=== PATIENT | male | born 1960 | race Caucasian/White ===

== ENCOUNTER → 2020-09-09 10:04 | Outpatient (BNVA) | payer BC, SELFPAY | PROVIDERS: Visit Provider Orthopaedic Surgery | DX: M75.41 Impingement syndrome of right shoulder (principal); M17.11 Unilateral primary osteoarthritis, right knee | CPT/HCPCS: 20610; J1040 ==

== ENCOUNTER 2022-08-24 08:02 | Outpatient (REF) | payer BC, SELFPAY ==
--- NOTE | ~2022-08-24 | CT_ITS ---
EXAMINATION: CT SINUS WITHOUT CONTRAST CLINICAL INFORMATION: Polyp of nasal cavity. COMPARISON: Remote CT scan of the head 07/24/2007. TECHNIQUE: Multidetector helical imaging was performed in the axial plane with generation of coronal and sagittal reformatted images. This CT examination was performed using dose optimization techniques as appropriate, variously including the following: *Automated exposure control *Adjustment of mA and/or kV according to patient size (this includes techniques or standardized protocols for targeted exams where dose is matched to indication/reason for exam; i.e. extremities or head) *Use of iterative reconstruction technique DLP: 166 mGy-cm. FINDINGS: FRONTAL SINUSES AND DRAINAGE PATHWAYS: The right frontal sinus is hypoplastic. There is a minimal amount of mucoperiosteal thickening in the left frontoethmoidal recess. MAXILLARY SINUSES AND DRAINAGE PATHWAYS: The maxillary sinuses are well-developed bilaterally. There is trace mucoperiosteal thickening in the inferior maxillary sinuses bilaterally. The ostiomeatal complexes are patent bilaterally. There are secondary ostia in the medial maxillary sinus bingham bilaterally. ETHMOID SINUSES: The ethmoid sinuses are well-developed and appear clear bilaterally. SPHENOID SINUSES AND DRAINAGE PATHWAYS: The sphenoid sinuses are well pneumatized. There is a minimal amount of mucoperiosteal thickening in the anterior right sphenoid sinus medially, but the sphenoethmoidal recess is patent. NASAL CAVITY AND NASAL SEPTUM: The nasal septum is deviated to the left and there is a prominent bony nasal septal spur extending between the left middle and inferior turbinate bones. There are small polyps off the posterior inferior turbinate bones bilaterally. ADDITIONAL RELEVANT FINDINGS: The lamina papyracea are intact. There is thin bone over the bilateral carotid canals. The ethmoid roofs are asymmetric, and the left olfactory fossa is deeper and narrower compared to the right. No periapical disease is seen. The TMJs and orbits are normal. There is moderate to severe opacification of the left mastoid air cells, which was demonstrated on remote prior imaging. There are no acute intracranial findings. CT/CT sinus wo IV con IMPRESSION: 1. There is mild paranasal sinus disease in multiple areas as described above. There is moderate to severe opacification of the left mastoid cells. 2. The ostiomeatal complexes are patent bilaterally. 3. The nasal septum is deviated to the left with a prominent left-sided bony spur.
== END 2022-08-24 08:03 | disposition home or self-care (01) ==
LOC: HO.CT 08:02
PROVIDERS: Visit Provider Otolaryngology
DX: J33.0 Polyp of nasal cavity (principal); J34.2 Deviated nasal septum
CPT/HCPCS: 70486

== ENCOUNTER 2022-11-10 05:58 | Outpatient (REF) | payer BC, SELFPAY ==
[2022-11-10 06:07] LABS: MANUAL DIFF FLAG NO
[2022-11-10 07:43] LABS: Basophils Absolute Auto 0.1 X10*3/uL (0.0-0.2); Eosinophils Absolute Auto 0.2 X10*3/uL (0.0-0.4); Eosinophils Percent Auto 3.5 % (0-4); Hematocrit 47.1 % (42.0-52.0); Hemoglobin 15.4 g/dl (14.0-18.0); Imm Gran Abs Auto 0.02 X10*3/uL (0.00-0.03); Imm Gran Pct Auto 0.4 % (0.0-0.4); Lymphocytes Absolute Auto 1.8 X10*3/uL (1.2-4.9); Lymphocytes Percent Auto 36.8 % (20-40); Mean Corpuscular HGB Conc 32.7 g/dl (31.0-36.0); Mean Corpuscular Hemoglobin 29.2 pg (27.0-33.0); Mean Corpuscular Volume 89.2 fL (80.0-98.0); Mean Platelet Volume 12.1 fL (9.4-12.4); Monocytes Absolute Auto 0.6 X10*3/uL (0.1-1.2); Monocytes Percent Auto 11.6 % (2-11); Neutrophils Absolute Auto 2.2 x10*3/uL (2.0-8.3); Neutrophils Percent Auto 46.7 % (45-73); Platelet Count 140 X10*3/uL (160-400); Red Blood Count 5.28 X10*6/uL (4.60-5.80); White Blood Count 4.8 X10*3/uL (4.8-10.8)
[2022-11-10 08:22] LABS: Erythrocyte Sedimentation Rate 5 MM/HR (0-15)
[2022-11-10 08:24] LABS: Alanine Aminotransferase 28 U/L (0-40); Albumin Level 4.3 g/dL (3.5-5.0); Alkaline Phosphatase 57 U/L (39-117); Anion Gap 15 (12-20); Aspartate Amino Transferase 21 U/L (5-37); Bilirubin Total 0.9 mg/dL (0.0-1.0); Blood Urea Nitrogen 23 mg/dL (9-16); C Reactive Protein < 0.10 mg/dL (< or = 0.50); Calcium 9.2 mg/dL (8.4-10.2); Carbon Dioxide 25 mmol/L (22-29); Chloride 108 mmol/L (96-108); Cholesterol 185 mg/dL; Estimated Glomerular Filt Rate 56; Glucose Fasting 90 mg/dL (60-99); HDL Cholesterol 64 mg/dL; LDL Cholesterol Calculated 107 mg/dl; Potassium 4.3 mmol/L (3.3-5.1); Sodium 144 mmol/L (135-145); Total Protein 6.9 g/dL (6.5-8.0); Triglycerides 74 mg/dL
[2022-11-10 08:45] LABS: Prostate Specific Antigen 1.78 ng/mL (<0.05-4.0)
[2022-11-12 05:09] LABS: Lyme Abs Screen <0.90 index
== END 2022-11-10 05:59 | disposition home or self-care (01) ==
LOC: HO.LAB 05:58
PROVIDERS: PCP Internal Medicine; Visit Provider Internal Medicine
DX: Z00.00 Encounter for general adult medical examination without abnormal findings (principal); Z12.5 Encounter for screening for malignant neoplasm of prostate; R51.9 Headache, unspecified
CPT/HCPCS: 36415; 80053; 80061; 84153; 85025; 85652; 86140; 86617; 86618

== ENCOUNTER 2022-12-03 08:23 | Outpatient (REF) | payer BC, SELFPAY ==
--- NOTE | ~2022-12-03 | MR_ITS ---
EXAMINATION: MR ANGIOGRAPHY BRAIN WITHOUT CONTRAST CLINICAL INFORMATION: Headache, rule out aneurysm COMPARISON: None TECHNIQUE: Noncontrast [id number] MRA of the brain was performed FINDINGS: Normal flow-related signal within the anterior circulation without evidence of focal stenosis or occlusion of the intradural internal carotid, middle cerebral, or anterior cerebral arteries. Normal flow-related signal within the posterior circulation without evidence of focal stenosis or occlusion of the intradural vertebral, basilar, superior cerebellar, or posterior cerebral arteries. configuration of the right posterior cerebral artery complex. No demonstrated intradural aneurysms. Left mastoid effusion. MR/MR angio head wo con IMPRESSION: No intracranial aneurysm
== END 2022-12-03 08:24 | disposition home or self-care (01) ==
LOC: HO.MRI 08:23
PROVIDERS: Visit Provider Internal Medicine
DX: R51.9 Headache, unspecified (principal); R05.1 Acute cough
CPT/HCPCS: 70544

== ENCOUNTER 2022-12-10 09:03 | Outpatient (REF) | payer BC, SELFPAY ==
--- NOTE | ~2022-12-10 | US_ITS ---
EXAMINATION: US RETROPERITONEAL LIMITED (RENAL ONLY) CLINICAL INFORMATION: Chronic kidney disease stage IIIa. Rule out obstruction. COMPARISON: Ultrasound abdomen complete 12/01/2016 and 11/22/2014. TECHNIQUE: Real-time imaging of the kidneys. FINDINGS: RIGHT KIDNEY: 11.5 x 5.7 x 5.2 cm (SAG x AP x TRV). The kidney is normal in size, contour, and echogenicity. Renal cortical thickness is normal. No calculi or focal parenchymal lesions. No hydronephrosis. LEFT KIDNEY: 12.2 x 6.1 x 5.5 cm (SAG x AP x TRV). The kidney is normal in size, contour, and echogenicity. Renal cortical thickness is normal. No calculi or focal parenchymal lesions. No hydronephrosis. US/US renal BI IMPRESSION: Normal-appearing kidneys with no evidence of obstruction.
== END 2022-12-10 09:04 | disposition home or self-care (01) ==
LOC: HO.US 09:03
PROVIDERS: PCP Internal Medicine; Visit Provider Internal Medicine
DX: N18.31 Chronic kidney disease, stage 3a (principal)
CPT/HCPCS: 76775

== ENCOUNTER 2023-08-11 08:21 | Outpatient (REF) | payer BC, SELFPAY ==
--- NOTE | ~2023-08-11 | XR_ITS ---
EXAMINATION: XR KNEE STANDING, BILATERAL XR KNEE, RIGHT CLINICAL INFORMATION: Pain. COMPARISON: 08/14/2019 TECHNIQUE: AP standing view of bilateral knees. Lateral and sunrise views of the right knee. FINDINGS: AP STANDING VIEW BILATERAL KNEES/RIGHT KNEE: Mild joint space narrowing with tiny medial marginal osteophytes left knee. Redemonstration of tricompartmental degenerative changes with joint space loss and marginal osteophytes in the right knee. Redemonstration of evidence of previous ACL repair. Moderate right joint effusion present. XR/XR knee standing BI IMPRESSION: 1. Status post ACL repair right knee. Moderate tricompartmental degenerative changes right knee. 2. Mild degenerative changes left knee. Mild joint space narrowing with tiny medial marginal osteophytes left knee.
--- NOTE | ~2023-08-11 | XR_ITS ---
EXAMINATION: XR KNEE STANDING, BILATERAL XR KNEE, RIGHT CLINICAL INFORMATION: Pain. COMPARISON: 08/14/2019 TECHNIQUE: AP standing view of bilateral knees. Lateral and sunrise views of the right knee. FINDINGS: AP STANDING VIEW BILATERAL KNEES/RIGHT KNEE: Mild joint space narrowing with tiny medial marginal osteophytes left knee. Redemonstration of tricompartmental degenerative changes with joint space loss and marginal osteophytes in the right knee. Redemonstration of evidence of previous ACL repair. Moderate right joint effusion present. XR/XR knee RT 2V IMPRESSION: 1. Status post ACL repair right knee. Moderate tricompartmental degenerative changes right knee. 2. Mild degenerative changes left knee. Mild joint space narrowing with tiny medial marginal osteophytes left knee.
== END 2023-08-11 08:22 | disposition home or self-care (01) ==
LOC: HO.HOSX 08:21
PROVIDERS: Visit Provider Orthopaedic Surgery
DX: M17.11 Unilateral primary osteoarthritis, right knee (principal); M25.562 Pain in left knee
CPT/HCPCS: 20610; 73560; 73565; J1100

== ENCOUNTER 2023-08-11 10:11 | Outpatient (AMB) | payer BC, SELFPAY ==
--- NOTE | 2023-08-11 10:17 | A.OFFVIS_ITS ---
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 He was last seen 09/08/[address] Jones who injected the knee. He reports that this injection was helpful for him for a few weeks to a month. He is having bilateral knee pain, right worse than left, the pain is felt all the time increased with most activity. Hx of a ACL repair of the right knee followed by an arthroscopy in 2013. 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 He works in [employer] and is doing loss of squatting and bending and climbing. He has pain all the time in his knees, R>L, which is worse with daily activity He was last seen by Dr. Jones on 09/08/20, and received a steroid injection, which he found helpful for ~1 month. He has a hx of right knee . 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 Review of Systems Const All systems reviewed & are unremarkable except as noted in HPI and below Physical Exam Const General: no acute distress, alert and awake Orientation/consciousness: patient oriented x3 HEENT Head: Yes normocephalic and Yes atraumatic Eyes EOM: EOMs intact bilaterally Resp Effort & Inspection: normal respiratory effort and able to speak in complete sentences Cardio Jugular venous distension: no JVD Skin General skin exam: turgor normal Rashes: no rashes Neuro General: patient oriented x3 Extrem Other: medial jlt ttp no effusion right 5-125 left 0-130 Psych Appearance: grossly normal Affect: normal affect Attitude: cooperative Office Procedures Joint Injection/Drain Joint Injection/Drain Details: Injected 1 mL of Decadron and 3 mL 1% lidocaine and 3 mL of 0.25% Marcaine. Site was prepped using aseptic technique. Patient tolerated the procedure well. Primary Site: right knee Secondary Site: left knee Approach Used: anterolateral Coding 51099 - Large joint 78241 - Glenohumeral/Tronchanteric Bursa/Intraarticular Procedure code (CPT) selection complete Results Reviewed Results Reviewed: 08/11/23 10:49 BUPivacaine MPF 0.25 % [Sensorcaine-MPF 0.25% 10 ML] 10 ml .ROUTE .STK-MED ONE Lidocaine HCl 1 % [Xylocaine 1 %] 2 ml .ROUTE .STK-MED ONE Lidocaine HCl 2 % MPF [Xylocaine 2 % MPF] 5 ml .ROUTE .STK-MED ONE dexAMETHasone sod phosphate [Decadron] 4 mg .ROUTE .STK-MED ONE I personally reviewed relevant radiographs. Moderate right knee OA Mild left knee OA Assessment & Plan Assessment & Plan (1) Primary osteoarthritis of right knee: Code(s): M17.11 - Unilateral primary osteoarthritis, right knee Plan: This is a 63-year-old gentleman with bilateral knee pain and moderate right knee osteoarthritis and mild on the left. I had a long discussion with him regarding his x-rays and his treatment options. At this point I recommend injections. I injected both knees today which she tolerated well. Orders: Orders XR knee standing BI 08/11/23 M25.569 - Pain in unspecified knee XR knee RT 2V 08/11/23 M25.569 - Pain in unspecified knee Coding Level of Care Code New Pt Level 3 (16584) Diagnoses Primary osteoarthritis of right knee M17.11 CPT Codes Coding - 85495 Large joint: 95962 - Large joint ([id number]) Coding - Joint 7: 58557 - Glenohumeral/Tronchanteric Bursa/Intraarticular ([id number])
== END 2023-08-11 11:28 | disposition home or self-care (01) ==
PROVIDERS: PCP Internal Medicine; Visit Provider Orthopaedic Surgery
DX: M17.0 Bilateral primary osteoarthritis of knee (principal)
CPT/HCPCS: 20610; 99214

== ENCOUNTER 2024-01-05 09:51 | Outpatient (REF) | payer BC, SELFPAY ==
--- NOTE | ~2024-01-05 | XR_ITS ---
EXAMINATION: XR KNEE, LEFT CLINICAL INFORMATION: Pain in unspecified knee. COMPARISON: 08/15/2023. TECHNIQUE: AP standing view of bilateral knees. Lateral and sunrise views of the left knee. FINDINGS: AP STANDING VIEW RIGHT KNEE: Moderate narrowing of the medial compartment with prominent medial and lateral marginal osteophytes redemonstrated. Redemonstration of evidence of previous ACL repair as noted on 08/14/2019. LEFT KNEE: Mild narrowing of the medial compartment. Small suprapatellar effusion. Tiny tricompartmental osteophytes. XR/XR knee LT 3V IMPRESSION: 1. Moderate degenerative changes right knee. 2. Mild degenerative changes left knee.
== END 2024-01-05 09:52 | disposition home or self-care (01) ==
LOC: HO.HOSX 09:51
PROVIDERS: PCP Internal Medicine; Visit Provider Orthopaedic Surgery
DX: M17.11 Unilateral primary osteoarthritis, right knee (principal); M25.462 Effusion, left knee
CPT/HCPCS: 20610; 73562; J0665; J1100

== ENCOUNTER 2024-01-05 09:51 | Outpatient (AMB) | payer BC, SELFPAY ==
--- NOTE | 2024-01-05 10:01 | A.OFFVIS_ITS ---
Intake Intake Visit Reasons: OV - B/L knee OA Intake Note: Wei is a 63 year old male who presents today as a new patient for a follow up of his right knee OA. He works in [employer] and is doing loss of squatting and bending and climbing. He has pain all the time in his knees, L>R, which is worse with daily activity. At his last visit on 08/11/23 bilateral knees were injected. The injections were helpful but only for a short period of time. Originally the right knee was more painful but recently the left knee has increased in pain which is limiting his work. Allergies No Known Allergies Allergy (Verified 01/05/24 10:03) HPI OV - B/L knee OA HPI Details Wei returns with left knee pain. He has pain with all daily activities and it is worse after walking and stairs. He had bilateral knee injection 6 months ago with some relief. He has a hx of right ACL reconstruction. 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 Stable ligamentous exam ? + medial Steinmen's Psych Appearance: grossly normal Affect: normal affect Attitude: cooperative Office Procedures Joint Injection/Drain Joint Injection/Drain Details: Injected 1 mL of Decadron and 3 mL 1% lidocaine and 3 mL of 0.25% Marcaine. Site was prepped using aseptic technique. Patient tolerated the procedure well. Primary Site: right knee Secondary Site: left knee Approach Used: anterolateral Coding - Large joint - Glenohumeral/Tronchanteric Bursa/Intraarticular Procedure code (CPT) selection complete Results Reviewed Results Reviewed: I personally reviewed relevant radiographs. Peaking of intercondylar emminces, otherwise mild OA at worst. Assessment & Plan Assessment & Plan (1) Primary osteoarthritis of right knee: Code(s): M17.11 - Unilateral primary osteoarthritis, right knee Plan: I Injected bilateral knees today (2) Effusion, left knee: Code(s): M25.462 - Effusion, left knee Plan: His primary complaint is left knee pain and recurrent swelling. His radiographs show mild OA only. I recommend MRI of the left knee. Orders: Orders XR knee standing BI Today M25.569 - Pain in unspecified knee MR knee LT wo con Today M25.462 - Effusion, left knee Coding Level of Care Code Est Pt Level 4 (49403) Diagnoses Primary osteoarthritis of right knee M17.11 Effusion, left knee M25.462 CPT Codes Coding - Large joint: 61111 - Large joint ([id number]) Coding - Joint 7: 09117 - Glenohumeral/Tronchanteric Bursa/Intraarticular ([id number])
== END 2024-01-05 11:24 | disposition home or self-care (01) ==
PROVIDERS: PCP Internal Medicine; Visit Provider Orthopaedic Surgery
DX: M17.11 Unilateral primary osteoarthritis, right knee (principal); M25.462 Effusion, left knee
CPT/HCPCS: 20610; 99214

== ENCOUNTER 2024-02-02 07:17 | Outpatient (REF) | payer BC, SELFPAY ==
--- NOTE | ~2024-02-02 | MR_ITS ---
EXAMINATION: MR KNEE WITHOUT CONTRAST, LEFT CLINICAL INFORMATION: Left knee pain. Effusion. COMPARISON: 01/05/2024 TECHNIQUE: MRI of the knee without contrast was performed using routine sequences on a high-field scanner. FINDINGS: MENISCI: Medial Meniscus: There is mildly increased intrasubstance signal within the posterior horn and body, suggesting intrameniscal degenerative signal. No tears. Lateral Meniscus: A complex tear is suspected at the anterior horn with horizontal or vertical components contacting the superior meniscal articular surface as well as markedly abnormal increased intrasubstance signal throughout the anterior horn, sparing the tibial-sided fibers. There is surrounding parameniscal edema as well as an anterior subacromial parameniscal cyst. Meniscal body and posterior horn are unremarkable. LIGAMENTS: Cruciate: Intact Collateral: Intact EXTENSOR MECHANISM: Intact ARTICULAR CARTILAGE/BONE: Patellofemoral Compartment: Minimal chondral thinning and fissuring at the lateral patellar facet. Tiny marginal osteophytes. Trochlear cartilage appears well-preserved. TT TG distance measures 1.5. Lateral trochlear inclination angle measures 11 degrees, within normal limits. Sulcus angle measures 140 degrees, normal. Medial Compartment: At the medial femoral condyle weightbearing surface, there is a partial-thickness chondral fissure measuring 1.5 cm AP with a small associated 3 x 5 mm partial-thickness delaminated chondral flap. Minimal underlying subchondral edema. Lateral Compartment: Minimal chondral surface irregularity at the medial aspect of the lateral femoral condyle weightbearing surface. JOINT FLUID AND BURSAE: Trace joint effusion and Fontana's cyst. No loose bodies. MR/MR knee LT wo con IMPRESSION: 1. Complex tear of the anterior horn of the lateral meniscus with an associated parameniscal cyst. 2. Minimal tricompartmental osteoarthritis. 3. Trace joint effusion and Fontana's cyst.
== END 2024-02-02 07:18 | disposition home or self-care (01) ==
LOC: HO.MRI 07:17
PROVIDERS: PCP Internal Medicine; Visit Provider Orthopaedic Surgery
DX: M25.462 Effusion, left knee (principal)
CPT/HCPCS: 73721

== ENCOUNTER 2024-02-24 11:04 | Outpatient (AMB) | payer BC, SELFPAY ==
--- NOTE | 2024-02-24 11:14 | A.OFFVIS_ITS ---
Vital Signs 02/24/24 11:17 Height 6 ft 2 in Weight 195 lb BMI 25.0 Intake Visit Reasons: OV-MRI Knee LT-review Intake Note: Wei is a 64 year old male who presents today for an MRI review of his left knee. bilateral knees injected 08/11/23. Patient reports that he has had no changes in his symptoms, continues to have pain. Allergies No Known Allergies Allergy (Verified 01/05/24 10:03) HPI HPI OV-MRI Knee LT-review: Details: Wei is a 64 year old male who presents today for an MRI review of his left knee. bilateral knees injected 08/11/23. Patient reports that he has had no changes in his symptoms, continues to have pain. Marked describes pain with twisting activities. He feels like he has difficulty getting through his day without pain. Injections been minimally helpful. 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 Stable ligamentous exam Positive lateral Victor Hugo's Psych Appearance: grossly normal Affect: normal affect Attitude: cooperative Results Reviewed Results Reviewed: I personally reviewed the MR images. MR/MR knee LT wo con IMPRESSION: 1. Complex tear of the anterior horn of the lateral meniscus with an associated parameniscal cyst. 2. Minimal tricompartmental osteoarthritis. 3. Trace joint effusion and Fontana's cyst. Assessment & Plan Assessment & Plan (1) Lateral meniscus tear: Code(s): S83.289A - Other tear of lateral meniscus, current injury, unspecified knee, initial encounter Category: Medical Plan: This is a active 64-year-old gentleman with a painful anterolateral meniscus tear. We have treated this conservatively for over 6 months without benefit. He continues to have sharp anterolateral pain with twisting. I recommend knee arthroscopy. I reviewed his MRI with him and discussed the risks, benefits and alternatives of surgery. I discussed the risks benefits and alternatives including but not limited to the risk of pain, infection, stiffness, need for further surgery as well as potential medical complications such as blood clots, pulmonary embolism and cardiac complications. He expressed understanding and we will proceed forward accordingly. Coding Level of Care Code Est Pt Level 4 (28688) Diagnoses Lateral meniscus tear S83.289A
[2024-02-24 11:17] VITALS: BMI 25.0
== END 2024-02-24 11:46 | disposition home or self-care (01) ==
PROVIDERS: PCP Internal Medicine; Visit Provider Orthopaedic Surgery
DX: S83.282A Other tear of lateral meniscus, current injury, left knee, initial encounter (principal)
CPT/HCPCS: 99214

== ENCOUNTER → 2024-02-24 11:04 | Outpatient (BNVA) | payer BC, SELFPAY | PROVIDERS: PCP Internal Medicine; Visit Provider Orthopaedic Surgery ==

== ENCOUNTER 2024-03-22 11:16 | Outpatient (AMB) | payer BC, SELFPAY ==
--- NOTE | 2024-03-22 11:19 | A.OFFVIS_ITS ---
Vital Signs 03/22/24 11:25 Height 6 ft 2 in Weight 195 lb BMI 25.0 Intake Visit Reasons: Preop LT knee 03/28/24 NE Intake Note: Wei is a 64 year old male who presents today for a pre op appointment for his LT knee 03/28/24 NE. Allergies No Known Allergies Allergy (Verified 03/22/24 11:23) HPI HPI Preop LT knee 03/28/24 NE: Details: 64-year-old right hand dominant male who presents in the office today for his preoperative history and physical exam prior to a left knee arthroscopy to be performed on 03/28/[address] Priyank Velasquez. Patient has no known allergy history. Patient is not currently taking any medication. 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 Review of Systems Const All systems reviewed & are unremarkable except as noted in HPI and below Physical Exam Vital Signs: BMI result Body Mass Index 25.0 Const General: no acute distress, alert and awake Orientation/consciousness: patient oriented x3 HEENT Head: Yes normocephalic and Yes atraumatic Eyes General: appearance normal, both eyes and all related structures EOM: EOMs intact bilaterally Neck Neck: Yes normal visual inspection and Yes no lymphadenopathy Resp Effort & Inspection: normal respiratory effort and able to speak in complete sentences Cardio Jugular venous distension: no JVD Rate: regular rate Peripheral pulses: Peripheral pulses 2+ throughout GI Inspection: Yes normal to inspection Palpation (GI): Soft to palpation Skin General skin exam: turgor normal Rashes: no rashes Neuro General: patient oriented x3 Extrem Other: Left knee: Skin is clean, dry, and intact. Mild effusion, none on the right There is a small Fontana's cyst. Stable ligamentous exam Positive lateral Victor Hugo's Psych Appearance: grossly normal Mental Status: mental status grossly normal Affect: normal affect Attitude: cooperative Assessment & Plan Assessment & Plan (1) Lateral meniscus tear: Comment: Left knee Code(s): S83.289A - Other tear of lateral meniscus, current injury, unspecified knee, initial encounter Category: Medical Plan Mr. Lyn is a 64-year-old right hand dominant male who presents in the office today for his preoperative history and physical exam prior to a left knee arthroscopy to be performed on 03/28/[address] Priyank Velasquez. Patient has no known allergy history. Patient is not currently taking any medication. 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 We discussed the risks, benefits and alternatives to the surgery and the rehabilitation course. The risks include infection, bleeding, nerve injury, ongoing pain, swelling, and stiffness, perioperative risk of injury to bones and soft tissues, and blood clots. I have answered all questions and with their understanding they have consented to move forward with a left knee arthroscopy to be performed on 03/28/[address] Priyank Velasquez. Post operative medications were sent to the pharmacy, hydrocodone-acetaminophen 5-325 mg (Vicodin) PO Q8H PRN, quantity 21 tabs for 7 days , while in the office today. The patient was instructed that he should obtain the prescription prior to surgery but should not consume until after the procedure; as these should only be taken for post operative pain management. Should the patient take these medications before surgery, a refill will not be sent to the pharmacy until their scheduled refill date. Follow-up will be at the post operative appointment on 04/12/2024 at 12:30 pm, or sooner if needed. PT order was created in the office today for after post-op. Orders: Orders PT Evaluation and Treatment Today S83.289A - Other tear of lateral meniscus, current injury, unspecified knee, initial encounter Medications: New hydrocodone-acetaminophen 5-325 mg Partial Fill upon patient request. 1 tab PO Q8H PRN 21 tabs 0RF pain 7 days Patient Instructions: Scribed by Deanna Marie certified medical assistant, for Lindsey Shen PA-C on 03/22/2024 at 11:20 am, EST. Coding Level of Care Code Global (12992) Diagnoses Lateral meniscus tear S83.289A
[2024-03-22 11:25] VITALS: BMI 25.0
== END 2024-03-22 11:35 | disposition home or self-care (01) ==
PROVIDERS: PCP Internal Medicine; Visit Provider Physician Assistant
DX: S83.289A Other tear of lateral meniscus, current injury, unspecified knee, initial encounter (principal)
CPT/HCPCS: 99024

== ENCOUNTER → 2024-03-22 11:16 | Outpatient (BNVA) | payer BC, SELFPAY | PROVIDERS: PCP Internal Medicine; Visit Provider Physician Assistant ==

== ENCOUNTER 2024-03-27 06:00 | Outpatient (REF) | payer BC, SELFPAY ==
[2024-03-27 06:19] LABS: MANUAL DIFF FLAG NO
[2024-03-27 07:36] LABS: Basophils Absolute Auto 0.1 X10*3/uL (0.0-0.2); Eosinophils Absolute Auto 0.2 X10*3/uL (0.0-0.4); Eosinophils Percent Auto 4.2 % (0-4); Hematocrit 45.2 % (42.0-52.0); Hemoglobin 14.9 g/dl (14.0-18.0); Imm Gran Abs Auto 0.02 X10*3/uL (0.00-0.03); Imm Gran Pct Auto 0.4 % (0.0-0.4); Lymphocytes Absolute Auto 1.6 X10*3/uL (1.2-4.9); Lymphocytes Percent Auto 31.9 % (20-40); Mean Corpuscular Hemoglobin 29.5 pg (27.0-33.0); Mean Corpuscular Volume 89.5 fL (80.0-98.0); Mean Platelet Volume 12.1 fL (9.4-12.4); Monocytes Absolute Auto 0.6 X10*3/uL (0.1-1.2); Monocytes Percent Auto 11.1 % (2-11); Neutrophils Absolute Auto 2.6 x10*3/uL (2.0-8.3); Neutrophils Percent Auto 51.4 % (45-73); Platelet Count 142 X10*3/uL (160-400); Red Blood Count 5.05 X10*6/uL (4.60-5.80); Red Cell Distribution Width 13.3 % (11.0-16.0)
[2024-03-27 07:46] LABS: Alanine Aminotransferase 17 U/L (0-40); Albumin Level 4.3 g/dL (3.5-5.0); Alkaline Phosphatase 50 U/L (39-117); Anion Gap 12 (12-20); Aspartate Amino Transferase 14 U/L (5-37); Bilirubin Total 0.6 mg/dL (0.0-1.0); Blood Urea Nitrogen 25 mg/dL (9-16); Calcium 9.1 mg/dL (8.4-10.2); Carbon Dioxide 24 mmol/L (22-29); Chloride 110 mmol/L (96-108); Cholesterol 193 mg/dL (<200); Estimated Glomerular Filt Rate > 60; Glucose Fasting 95 mg/dL (60-99); HDL Cholesterol 75 mg/dL (>40); LDL Cholesterol Calculated 104 mg/dL (<100); Sodium 142 mmol/L (135-145); Total Protein 6.9 g/dL (6.5-8.0); Triglycerides 70 mg/dL (<150)
[2024-03-27 08:07] LABS: Prostate Specific Antigen 0.83 ng/mL (<0.05-4.0)
[2024-03-27 10:38] LABS: Appearance Urine Clear; Color Urine Yellow; Glucose Urine UA Negative (Negative); Leukocyte Esterase Urine Negative (Negative); Nitrite Urine Negative (Negative); PH 5.5 (5.0-9.0); Specific Gravity - Urine >= 1.030 (1.005-1.025); Urine Blood Negative (Negative); Urine Ketones Negative (Negative); Urine Protein Negative (Neg-Trace)
== END 2024-03-27 06:01 | disposition home or self-care (01) ==
LOC: HO.LAB 06:00
PROVIDERS: PCP Internal Medicine; Visit Provider Internal Medicine
DX: I10 Essential (primary) hypertension (principal); Z12.5 Encounter for screening for malignant neoplasm of prostate
CPT/HCPCS: 36415; 80053; 80061; 81003; 84153; 85025

== ENCOUNTER 2024-03-28 05:47 | Day surgery (SDC) | payer BC, SELFPAY ==
[2024-03-26 07:43] VITALS: BMI 25.0
--- NOTE | 2024-03-26 13:41 | P.CONAN_ITS ---
Documented by User: Elizabeth Puga NP 03/26/24 13:41 HPI - Anesthesia Eval Consult details Narrative: 64yo M for Left Knee Arthroscopy PMFSH Active Problems Active Problems: All Active Problems Lateral meniscus tear (Acute) Effusion, left knee (Acute) Primary osteoarthritis of right knee (Acute) Rotator cuff impingement syndrome of right shoulder (Acute) Past Medical History Medical History Rotator cuff impingement syndrome of right shoulder Primary osteoarthritis of right knee GERD (gastroesophageal reflux disease) Medial meniscus tear Surgical History Surgical History History of repair of ACL History of arthroscopy of right knee Social History Social History Alcohol intake: current Alcohol intake frequency: holidays/special occasions only Patient Tobacco Use Status: Never used Tobacco Use of substances other than those prescribed or required for medical reasons: Yes Substance Use Type Other:: occas danielle Are you DNR?: No Advance Directives: No Advance Directives Information Provided: Yes Current occupational status: employed 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 Meds Allergies Allergy/AdvReac Type Severity Reaction Status Date / Time No Known Allergies Allergy Verified 03/28/24 06:06 Exam Height,Weight and Vital Signs: Height 6 ft 2 in Weight 88.451 kg Assessment and Plan Assessment Anesthesia Assessment: Chart Reviewed Documented by User: Luz Keen MD 03/28/24 07:25 PMFSH Past Medical History Medical History Rotator cuff impingement syndrome of right shoulder Primary osteoarthritis of right knee GERD (gastroesophageal reflux disease) Medial meniscus tear Family History Family history of problems with anesthesia: No Surgical History Surgical History History of repair of ACL History of arthroscopy of right knee History of Problems with Anesthesia: No Social History Social History Alcohol intake: current Alcohol intake frequency: holidays/special occasions only Patient Tobacco Use Status: Never used Tobacco Use of substances other than those prescribed or required for medical reasons: Yes Substance Use Type Other:: micheal santos Are you DNR?: No Advance Directives: No Advance Directives Information Provided: Yes Current occupational status: employed 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 Allergies Allergy/AdvReac Type Severity Reaction Status Date / Time No Known Allergies Allergy Verified 03/28/24 06:06 Exam Airway Mallampati Class: II TM Dist: >3cm Neck ROM: Full Heart: rrr Lungs: cta Assessment and Plan Assessment Anesthesia Assessment: Anesthesia Plan Discussed Final Anesthetic Review Family History of Problems with Anesthesia: No History of Problems with Anesthesia: No NPO: Yes ASA Class: II Final Preanesthetic Review: No Changes in Pt Med Stat, Meds/Allgs Chart Reviewed, Consent Obtained/Reviewed and Anes Risks/Benef Reviewed Patient Risk: Low Procedure Risk: Low Anesthetic Plan Anesthetic Plan: GA Disposition: Standard PACU
[2024-03-28 06:07] VITALS: BMI 25.3
[2024-03-28 06:10] VITALS: BMI 25.3
[2024-03-28 06:15] VITALS: BP 118/66; PULSE 65; RESP 18; TEMP 36.2; O2SAT 98
[2024-03-28] MEDS: Lactated Ringers 1,000 ML 100 ML IVCONT (06:31)
--- NOTE | 2024-03-28 07:26 | MHC.SHP ---
Pre-Procedural Eval Section A - 24 Hr Update-Section A only Date of Service: 03/28/24 The patient is an INPATIENT: No Changes since office visit: No Cold of Flu in the past 2 weeks, No New Medical Problems, No Changes in Medication and No Patient answered all questions The patient has been examined within 24 hours of the surgical procedure. The History & Physical has been completed within 30 days and I have reviewed it.: Yes Section B - Complete if H&P > 30 days Chief Complaint: Other tear of medial meniscus, current injury, Allergies: Allergies Allergy/AdvReac Type Severity Reaction Status Date / Time No Known Allergies Allergy Verified 03/28/24 06:06 Plan I have reviewed the history and physical and performed a pertinent physical examination on my patient. No changes have occurred unless specified. Time Spent With Patient Time: Total time managing care of this patient today ____ minutes.
--- NOTE | 2024-03-28 08:11 | P.BOP_ITS ---
Brief Operative Note Date of Service: 03/28/24 Pre-op diagnosis: left knee lateral meniscus tear Post-op diagnosis: other (1) Lateral meniscus tear 2) Chondromalacia medial femoral condyle (Grade2)) Procedure: Partial lateral meniscectomy and chondroplasty Implants: none Surgeon: Priyank Velasquez MD Anesthesia: GETA Was an Maintenance Supervisor Mechanical used for this Procedure?: No Estimated blood loss (mL): 20 Tourniquet time (min): 17 IV fluids (mL): 500 Pathology: none sent Condition: stable Disposition: PACU
--- NOTE | 2024-03-28 08:13 | W.PM.OPN ---
Operative Note Operative Note Date of Service: 03/28/24 Narrative: Date of Service: 03/28/24 Pre-op diagnosis: left knee lateral meniscus tear Post-op diagnosis: other (1) Lateral meniscus tear 2) Chondromalacia medial femoral condyle (Grade2)) Procedure: Partial lateral meniscectomy and chondroplasty Implants: none Surgeon: Priyank Velasquez MD Anesthesia: GETA Was an Lift Mechanic used for this Procedure?: No Estimated blood loss (mL): 20 Tourniquet time (min): 17 IV fluids (mL): 500 Pathology: none sent Condition: stable Disposition: PACU Procedure in detail: Patient was brought to the operating room placed supine on the arthroscopic table and prepped and draped in standard sterile fashion. A time-out was called to identify proper site proper procedure proper surgeon and IV antibiotics per weight were administered. I began by exsanguinating the limb and insufflating tourniquet to 300 mm Hg. Then made a standard anterolateral stab incision. The knee was insufflated with water and 30 degree arthroscope was placed. There was grade 1 fibrillations of the patella but overall suprapatellar pouch and the gutters were clean. I descended into the medial compartment where I made my medial portal under direct visualization. There was an intact medial meniscus and G2 changes of the wb portion of the MFC. The ACL was intact. Laterally there was a far anterior tear of the lateral meniscus and there was scarring with the anterior interval fat and a loose meniscal fragment. I debrided this with a shaver and cautery. I then examined the lateral compartment. The cartilage surfaces were clean. The meniscal root and the body and posterior horn were intact. The anterior medial aspect of the lateral meniscus was degerated but stable to probing. I then debrided the MFC chondromalacia. Once I was satisfied with the debridement I took my final pictures. I then removed all instrumentation and closed the portals with skin glue. 25 mL of 2% Marcaine with epinephrine was injected into the joint and the surrounding soft tissues. Patient was then placed in sterile dressing extubated brought recovery room stable condition. There were no known complications.
[2024-03-28 08:15] VITALS: BP 114/64; PULSE 61; RESP 12; TEMP 36.6; O2SAT 99
[2024-03-28 08:20] VITALS: BP 115/68; PULSE 59; RESP 16; O2SAT 98
[2024-03-28 08:25] VITALS: BP 123/69; PULSE 60; RESP 16; O2SAT 95
[2024-03-28 08:30] VITALS: BP 119/68; PULSE 59; RESP 16; O2SAT 95
[2024-03-28 08:45] VITALS: BP 120/66; PULSE 55; RESP 18; TEMP 36.5; O2SAT 97
== END 2024-03-28 09:37 | disposition home or self-care (01) ==
LOC: HO.SSS 05:47
PROVIDERS: PCP Internal Medicine; Visit Provider Orthopaedic Surgery
PROC: (CPT 29870; principal; 2024-03-28 07:30)
DX: S83.282A Other tear of lateral meniscus, current injury, left knee, initial encounter (principal); M94.262 Chondromalacia, left knee; X58.XXXA Exposure to other specified factors, initial encounter; Y93.9 Activity, unspecified; Y92.9 Unspecified place or not applicable; Y99.9 Unspecified external cause status
CPT/HCPCS: 29881; J0131; J0171; J0690; J1100; J1885; J2250; J2405; J2704; J2795; J3010

== ENCOUNTER → 2024-03-28 05:47 | Outpatient (BNV) | payer BC, SELFPAY | PROVIDERS: PCP Internal Medicine; Visit Provider Orthopaedic Surgery | DX: S83.282A Other tear of lateral meniscus, current injury, left knee, initial encounter (principal) | CPT/HCPCS: 29881 ==

== ENCOUNTER 2024-04-12 12:10 | Outpatient (AMB) | payer BC, SELFPAY ==
--- NOTE | 2024-04-12 12:36 | MHC.OFFVIS ---
Intake Visit Reasons: PO LT knee 03/28/24 NE Intake Note: Wei is a 64 year old male who presents today for a post op appointment s/p LT knee 03/28/24 NE. Patient reports he is doing well, states feeling a tightness in the posterior aspect of knee. He continues to have swelling in his leg down to his foot. Allergies No Known Allergies Allergy (Verified 03/28/24 06:06) HPI HPI PO LT knee 03/28/24 NE: Details: 64-year-old right hand dominant male who presents in the office today 15 days status post left knee partial lateral meniscectomy and chondroplasty, which was performed on 03/28/[address] Velasquez.? ? While in the office today, the patient reports he is doing well. He claims to feel tightness along the posterior aspect of the left knee. He confirms continued edema in the left lower extremity extending to the left foot. ? 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 No surrounding erythema or drainage. No ecchymosis or joint effusion. Slight irritation at the medial incision site where the suture is located. No signs of infection, at this time. Calf is supple and non-tender.?Full ROM. Negative Barrera?s. NVI.? Assessment & Plan Assessment & Plan (1) S/P left knee arthroscopy: Onset Date: ~03/28/24 Comment: Left knee partial lateral meniscectomy and chondroplasty NE Code(s): Z98.890 - Other specified postprocedural states Category: Surgical Plan Mr. Lyn is a 64-year-old right hand dominant male who presents in the office today 15 days status post left knee partial lateral meniscectomy and chondroplasty, which was performed on 03/28/[address] Velasquez.? ? While in the office today, the patient reports he is doing well. He claims to feel tightness along the posterior aspect of the left knee. He confirms continued edema in the left lower extremity extending to the left foot.? ? The patient will attend physical therapy which begins on 04/24/2024 at 8:00 am. Follow-up will be PRN, or sooner if needed. ? Patient Instructions: Scribed by Deanna Marie medical office representative, for Lindsey Shen PA-C on 04/12/2024 at 12:14 pm, EST.? Coding Level of Care Code Global (13294) Diagnoses S/P left knee arthroscopy Z98.890
== END 2024-04-12 13:01 | disposition home or self-care (01) ==
PROVIDERS: PCP Internal Medicine; Visit Provider Physician Assistant
DX: Z98.890 Other specified postprocedural states (principal)
CPT/HCPCS: 99024

== ENCOUNTER → 2024-04-12 12:10 | Outpatient (BNVA) | payer BC, SELFPAY | PROVIDERS: PCP Internal Medicine; Visit Provider Physician Assistant ==

== ENCOUNTER 2024-04-27 16:04 | Outpatient (REF) | payer BC, SELFPAY ==
--- NOTE | ~2024-04-27 | US_ITS ---
EXAMINATION: US VENOUS ULTRASOUND WITH DOPPLER LOWER EXTREMITY, LEFT CLINICAL INFORMATION: Pain. COMPARISON: None available. TECHNIQUE: Ultrasound of the deep veins is performed from the hip to the calf with compression sonography and color and pulse Doppler assessment. Spectral analysis with color-flow imaging is performed. FINDINGS: There is normal venous compression and respiratory variation and augmented flow. The visualized common femoral vein, superficial femoral vein, profunda femoral vein, popliteal vein, and the trifurcation region shows no evidence of deep venous thrombosis. There is a 3.8 x 0.6 x 1.4 cm bilobed avascular collection in the left popliteal fossa with a single internal septation. Mildly enlarged left inguinal lymph nodes with nonaggressive morphology including preserved fatty hilum and normal cortex, most likely reactive. US/US venous duplex LE LT IMPRESSION: 1. No DVT demonstrated in the left lower extremity. 2. There is a 3.8 cm bilobed avascular collection in the left popliteal fossa, possibly a Fontana's cyst, superimposed infection/inflammation is not excluded. Recommend clinical correlation and attention on follow-up. 3. Mildly enlarged left inguinal lymph nodes, likely reactive. If the patient's symptoms persist, followup ultrasound in 5 days 7 days might be of value to exclude proximal propagation from a non-visualized calf vein.
== END 2024-04-27 16:05 | disposition home or self-care (01) ==
LOC: HO.US 16:04
PROVIDERS: PCP Internal Medicine; Visit Provider Internal Medicine
DX: M79.662 Pain in left lower leg (principal)
CPT/HCPCS: 93971

== ENCOUNTER 2024-05-24 07:00 | Outpatient (RCR) | payer BC, SELFPAY ==
--- NOTE | 2024-04-24 14:21 | MHC.PT.EP ---
[facility] [place] Office [place] Office [place] Office [address] Rocio Donahue [address] [phone] F: [phone] F: [phone] F: [phone] F: [phone] Physical Therapy Plan of Care Date of Evaluation: 04/24/24 Date of Surgery: 03/28/24 Diagnosis: TEAR LATERAL MENISCUS L Assessment: Pt IS 64 YO M REFERRED TO PT FROM [facility] ([facility]) S/P L KNEE (LAT MENISCECTOMY AND MED FEMORAL CHONDROPLASTY) ON 03/28/[address] VARMA. PRESENTS TO PT WITH GOOD KNEE ROM AND STRENGTH TESTING BUT REPORTS SOME CONTINUED SWELLING AND LIMITED ABILITY TO SQUAT. 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 Pt SHOULD BENEFIT FROM PT TO HELP IMPROVE STRENGTH AND PROPRIOCEPTION AND OVERALL FUNCTIONAL MOBILITY TO HELP DECREASE PAIN/SWELLING. OF NOTE, Pt HAD ACL RECONSTRUCTION ON R KNEE IN PAST AND CONTINUES WITH R KNEE SXS SO SHOULD BENEFIT FROM PERFORMING EXS/STRETCHES B Frequency and Duration: The patient will be seen 2X/WK X 6 WKS Short Term Goals: 1. INCREASED AWARENESS KNEE CARE 2. I HEP WITH DC EX PLAN Field Appraiser Goals: 1. DECREASED L KNEE PAIN AT LEAST 50% WITH ADLS 2. IMPROVED LEFI (41/80 SOC) Treatment Plan: Modalities to reduce pain, spasms and effusion. Manual therapy to restore motion and function. Therapeutic exercise to improve strength and flexibility. Neuromuscular re-education for posture and balance. Therapeutic activities to return to functional activities of daily living. Electronically signed by: JAYLENE GAO PT Please sign and return to therapist. Thank you for your referral.
--- NOTE | 2024-06-14 07:32 | MHC.PT.DC ---
[facility] [place] Office [place] Office [place] Office [address] Rocio Donahue [address] [phone] F: [phone] F: [phone] F: [phone] F: [phone] Physical Therapy Discharge Report Diagnosis: TEAR LATERAL MENISCUS L Date of Surgery: 03/28/24 Date of Evaluation: 04/24/24 Date of Discharge: 06/14/24 Treatments to Date: 8 Cancellations to Date: 0 No Shows to Date: 2 Discharge Status: Achieved Goals Improved Function Independent with HEP Discharge Summary: AT THE LAST ATTENDED PT APPT, RIGOBERTO WAS 8 WKS POST-OP ( OF 05/23/24). RIGOBERTO HAS RESIDUAL WEAKNESS IN Rt > Lt CALF/ GLUTE -> OF NOTE, HE HAS A H/O RIGHT ACL RECONSTRUCTION- HIS LEFT KNEE PAIN IS INTERMITTENT, WORSE LATER IN THE DAY, MORE LOCALIZED TO LATERAL ASPECT OF Lt KNEE; HE WAS CHALLENGED ECCENTRICALLY -> HIS PROGRESSIVE HEP ADDRESSES ECCENTRIC WORK. HE HAS RTW AND IS TOLERATING HIS JOB DEMANDS. THE Pt WAS ON VACATION AND THEN HE DID NOT ATTEND HIS LAST 2 APPTS. HE IS D/C'D THIS DATE, HAVING MET THE MAJORITY OF PT GOALS SET W Pt. Electronically signed by: MAHAD CH,PT Please sign and return to therapist. Thank you for your referral.
--- NOTE | 2024-06-14 07:37 | MHC.PT.DC ---
[facility] [place] Office [place] Office [place] Office [address] Rocio Donahue [address] [phone] F: [phone] F: [phone] F: [phone] F: [phone] Physical Therapy Discharge Report Diagnosis: TEAR LATERAL MENISCUS L Date of Surgery: 03/28/24 Date of Evaluation: 04/24/24 Date of Discharge: 06/14/24 Treatments to Date: 8 Cancellations to Date: 0 No Shows to Date: 2 Discharge Status: Achieved Goals Improved Function Independent with HEP Discharge Summary: AT THE LAST ATTENDED PT APPT, RIGOBERTO WAS 8 WKS POST-OP ( OF 05/23/24). RIGOBERTO HAS RESIDUAL WEAKNESS IN Rt > Lt CALF/ GLUTE -> OF NOTE, HE HAS A H/O RIGHT ACL RECONSTRUCTION- HIS LEFT KNEE PAIN IS INTERMITTENT, WORSE LATER IN THE DAY, MORE LOCALIZED TO LATERAL ASPECT OF Lt KNEE; HE WAS CHALLENGED ECCENTRICALLY -> HIS PROGRESSIVE HEP ADDRESSES ECCENTRIC WORK. HE HAS RTW AND IS TOLERATING HIS JOB DEMANDS. THE Pt WAS ON VACATION AND THEN HE DID NOT ATTEND HIS LAST 2 APPTS. HE IS D/C'D THIS DATE, HAVING MET THE MAJORITY OF PT GOALS SET W Pt. Electronically signed by: MAHAD CH,PT Please sign and return to therapist. Thank you for your referral.
== END 2024-06-14 07:37 | disposition home or self-care (01) ==
LOC: HO.PT 07:00
PROVIDERS: PCP Internal Medicine; Visit Provider Physician Assistant
DX: S83.289D Other tear of lateral meniscus, current injury, unspecified knee, subsequent encounter (principal)
CPT/HCPCS: 97110; 97112; 97140; 97161; 97535

== ENCOUNTER 2024-08-02 13:17 | Outpatient (AMB) | payer BC, SELFPAY ==
--- NOTE | 2024-08-02 13:23 | A.OFFVIS_ITS ---
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 Pt states hx of vein stripping of Left LE w/ 15+ yrs ago. Does have large rope like VV. Pt states he wears compression stockings but doesn't help much. States that VV are worse when he is on his feet or in warmer weather. No issues on the Right LE but states he does have Hx of Right LE VV. 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 Complaints include pain over varicosities, swelling of lower extremities, scrape gatherer mping, fatigue, and heaviness of the lower extremities. 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 It is noted more so in left leg. Patient reports prior left leg vein stripping by Dr. Christine nearly 15 years ago Patient denies any history of DVT/ PE. Patient denies any history of phlebitis. Trial of compression includes - [id number] They now present for vascular evaluation regarding their varicose veins. 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 Review of Systems Const Reports as per HPI ENT Reports no additional complaints Card Denies chest pain, Denies chest pain at rest and Denies chest pain with activity Resp Denies chest congestion and Denies cough GI Reports no additional complaints Musc Details: pain over varicosities, aching of lower extremities, swelling, cramping, heaviness and tiredness, itching Denies abnormal gait Skin/Breast Reports pruritus and Denies wounds Neuro Reports no additional complaints and Denies abnormal gait Psych Denies no additional complaints Physical Exam Const General: cooperative, healthy appearing and comfortable Orientation/consciousness: oriented to person, oriented to place and oriented to time Neck Carotids: no bruits Chest Chest palpation & inspection: normal inspection of the chest and normal palpation of entire chest wall Resp Effort & Inspection: normal respiratory effort and able to speak in complete sentences Cardio Rate: regular rate Heart sounds: S1 normal heart sound present and S2 normal heart sound present Peripheral pulses: Peripheral pulses 2+ throughout GI Inspection: Yes normal to inspection Skin Other: +2 edema, large rope-like varicosities greater than 4 mm left thigh and calf CEAP Classification C4 - skin color changes Ep - Etiology Primary As - superficial veins P - reflux General skin exam: dry skin Neuro General: oriented to person, oriented to place and oriented to time Extrem Right lower extremity: full ROM, normal capillary refill and edema Left lower extremity: full ROM, normal capillary refill and edema Psych Mental Status: mental status grossly normal Assessment & Plan Assessment & Plan (1) Varicose veins of left lower extremity with inflammation: Code(s): I83.12 - Varicose veins of left lower extremity with inflammation Category: Medical Plan: In short, the patient has evidence of venous insufficiency. I have discussed the pathophysiology with the patient. In addition I have provided informational material regarding venous disease to the patient. We have discussed conservative measures including compression, elevation, and exercise. I have also provided a handout regarding appropriate use of compression stockings and where to purchase good compression stockings as well. I have taken the liberty of ordering venous insufficiency testing with the patient. They will follow up with me after testing. The patient had an opportunity to ask questions regarding the treatment plan. All questions were answered. Imaging studies, laboratory studies and physical exam results were discussed and reviewed in detail. No major barriers to understanding were identified. The patient expressed understanding and agreement with the above treatment plan. The patient is aware they should contact our office by phone for worsening of the current condition or the appearance of new symptoms. Thank you for allowing me to participate in the vascular care of this patient. If you have any questions or concerns regarding the treatment for the above condition please do not hesitate to contact me. The office telephone contact is [phone]. This note is constructed using voice recognition software. While every effort has been made to ensure accuracy, hydraulic design engineer errors may have been included. Thank you for allowing me to participate in the care of your patient. Yours sincerely, Alec Kirkpatrick MD, FACS, R.P.V.I. Orders: Orders US venous duplex LE BI 1 Week I83.12 - Varicose veins of left lower extremity with inflammation Coding Level of Care Code New Pt Level 4 (53311) Diagnoses Varicose veins of left lower extremity with inflammation I83.12
== END 2024-08-02 13:44 | disposition home or self-care (01) ==
PROVIDERS: PCP Internal Medicine; Visit Provider Surgery Vascular Surgery
DX: I83.12 Varicose veins of left lower extremity with inflammation (principal)
CPT/HCPCS: 99204

== ENCOUNTER → 2024-08-02 13:17 | Outpatient (BNVA) | payer BC, SELFPAY | PROVIDERS: PCP Internal Medicine; Visit Provider Surgery Vascular Surgery ==

== ENCOUNTER 2024-08-15 08:27 | Outpatient (REF) | payer BC, SELFPAY ==
--- NOTE | ~2024-08-15 | US_ITS ---
EXAMINATION: US VENOUS BILATERAL LOWER EXTREMITIES (REFLUX EXAM) CLINICAL INFORMATION: Leg pain and varicose veins. COMPARISON: None available. TECHNIQUE: Color flow triplex imaging and compression Doppler was performed to evaluate both the deep and the superficial systems bilaterally. To evaluate the superficial system, the examination was performed in the upright position. Color-flow Doppler ultrasound and compression ultrasound were utilized. In addition, maneuvers were utilized to demonstrate reflux. FINDINGS: 1. DEEP VENOUS ULTRASOUND OF THE RIGHT LOWER EXTREMITY: Respiratory variation, normal compression and augmented flow are noted in the right common femoral vein as well as the right popliteal vein and there is no evidence of deep venous thrombosis at these locations. There is no evidence of reflux in the deep system in either the common femoral vein or the popliteal vein. There is no evidence of a Fontana's cyst. 2. SUPERFICIAL ULTRASOUND WITH DOPPLER OF RIGHT LOWER EXTREMITY: The right great saphenous vein at the saphenofemoral junction measures 6 mm, at the proximal thigh 5 mm, at the mid thigh 3 mm, above the knee 3 mm, at the knee 3 mm, [id number] 3 mm, midcalf 3 mm and at the ankle measures 3 mm. Segmental reflux of 1.3 seconds [id number]. Duplicated Right Great Saphenous Vein: 2 mm lateral accessory saphenous without reflux. The right small saphenous vein measures 3 mm and 1.3 seconds of reflux at the junction. Accessory Vein of Giacomini: None. Incompetent Perforators: None. Varices Present: Refluxing (greater than 3 seconds) 0.3 cm varix in the proximal calf. 3. DEEP VENOUS ULTRASOUND OF THE LEFT LOWER EXTREMITY: Respiratory variation, normal compression and augmented flow are noted in the left common femoral vein as well as the left popliteal vein and there is no evidence of deep venous thrombosis at these locations. There is no evidence of reflux in the deep system in either the common femoral vein or the popliteal vein. There is no evidence of a Fontana's cyst. 4. SUPERFICIAL ULTRASOUND WITH DOPPLER OF LEFT LOWER EXTREMITY: Left great saphenous vein at the saphenofemoral junction measures 10 mm. Great saphenous vein is an absent until the knee when it measures, at the knee 1 mm, [id number]-[id number] 1 mm, midcalf 2 mm and at the ankle measures 3 mm. Reflux is present from the mid calf downwards of greater than 3 seconds. Duplicated Left Great Saphenous Vein: None. The left small saphenous vein measures 6 mm and shows no reflux. Accessory Vein of Giacomini: None. Incompetent Perforators: A single incompetent dietitian research 34 cm from the heel measuring 2 mm with 2 seconds of reflux. Varices Present: Multiple varices are present ranging in size from 0.3 to 0.6 cm, almost all of which reflux. US/US venous duplex LE BI IMPRESSION: 1. No evidence of reflux or thrombus in the common femoral veins or popliteal veins bilaterally. 2. The right great saphenous vein is competent with a single incompetent varix in the proximal calf. 3. The left great saphenous vein is absent from the groin to the knee. Reflux is present in the calf with multiple incompetent varices. Electronically signed by: Volodymyr Elias MD 08/29/2024 12:02 AM BRII HENDERSON
== END 2024-08-15 08:28 | disposition home or self-care (01) ==
LOC: HO.US 08:27
PROVIDERS: PCP Internal Medicine; Visit Provider Surgery Vascular Surgery
DX: I83.12 Varicose veins of left lower extremity with inflammation (principal)
CPT/HCPCS: 93970

== ENCOUNTER 2024-09-20 10:42 | Outpatient (AMB) | payer BC, SELFPAY ==
--- NOTE | 2024-09-20 10:44 | A.OFFVIS_ITS ---
Intake Visit Reasons: Follow Up 08/15 US Intake Note: follow up US 08/15/24 w/ Left LE rope like VV and Hx of vein stripping w/ 15+ yrs ago. Wears compression socks daily and states they are painful and don't really help. Does get swelling and restlessness. Monkey Breeder Required: No Accompanied by: Self / Same As Patient Allergies No Known Allergies Allergy (Verified 09/20/24 10:49) HPI HPI Follow Up 08/15 [facility]: Details: Very pleasant 64-year-old gentleman presents for follow-up regarding venous insufficiency. He continues to have large varicosities on the left lower extremity which have been a source of pain and discomfort for him. He has used compression which has provided minimal relief. He now presents for vascular follow-up. 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 Review of Systems Const All systems reviewed & are unremarkable except as noted in HPI and below Reports no additional complaints ENT Reports Normal hearing present Card Denies chest pain, Denies chest pain at rest, Denies chest pain with activity and Denies pedal edema Resp Denies cough GI Denies abdominal pain Musc Details: pain over varicosities, aching of lower extremities, swelling, cramping, heaviness and tiredness, itching Denies abnormal gait, Denies muscle cramps and Denies radiating pain into limb Skin/Breast Denies skin ulcer and Denies wounds Neuro Reports Normal hearing present and Denies abnormal gait Psych Reports no additional complaints Physical Exam Const General: cooperative, healthy appearing and comfortable Orientation/consciousness: oriented to person, oriented to place and oriented to time HEENT Head: Yes normal to inspection Neck Neck: Yes normal visual inspection Carotids: no bruits Chest Chest palpation & inspection: normal inspection of the chest Resp Effort & Inspection: normal respiratory effort and able to speak in complete sentences Auscultation: clear to auscultation bilaterally, no crackles, no rales, no rhonchi and no wheezes Cardio Rate: regular rate Rhythm: regular rhythm Heart sounds: S1 normal heart sound present and S2 normal heart sound present Bruits: no carotid bruits Peripheral pulses: Peripheral pulses 2+ throughout GI Inspection: Yes normal to inspection Skin Other: +2 edema, large rope-like varicosities greater than 4 mm large cluster left thigh and calf CEAP Classification C4 - skin color changes Ep - Etiology Primary As - superficial veins P - reflux General skin exam: dry skin Wounds: no wounds Hair: normal Neuro General: oriented to person, oriented to place and oriented to time Cranial nerves: Yes CN's II-XII intact bilaterally and Yes Normal hearing present Cognition (Neuro): normal cognition Motor exam (neuro): 5/5 motor strength present throughout Extrem General: No clubbing, No cyanosis and Yes edema Right lower extremity: full ROM, normal capillary refill and edema Left lower extremity: full ROM, normal capillary refill and edema Psych Appearance: grossly normal Mental Status: mental status grossly normal Speech and movement: Normal speech and movement present Results Reviewed Results Reviewed: Brief summary of venous insufficiency testing is as follows: right great saphenous vein: negative right small saphenous vein: negative right accessory vein: none present left great saphenous vein: Focally positive in left calf but vein small in caliber left small saphenous vein: negative left accessory vein: none present Please note there is no evidence of any venous aneurysms or significant tortuosity Assessment & Plan Assessment & Plan (1) Varicose veins of left lower extremity with inflammation: Code(s): I83.12 - Varicose veins of left lower extremity with inflammation Category: Medical Plan: This patient has varicose veins with inflammation. They continue to be a source of discomfort for the patient. The patient has tried conservative treatment with compression, leg elevation and exercise program for over 3 months time. They have been compliant with all treatment. This has provided minimal relief for the patient. I do not anticipate this course of treatment will alter the underlying etiology. The patient has been scheduled for lower extremity venous treatment inclusive of --- left leg microphlebectomy. Risks, benefits, and complications of this procedure has been discussed in detail with the patient including but not limited to bleeding, infection, and the development of a DVT. The patient has demonstrated a clear understanding and has consented. We will schedule the patient as soon as possible. Thank you for allowing us to participate in this patient's care. If there are any questions or concerns please do not hesitate to contact us. Coding Level of Care Code Est Pt Level 4 (16502) Diagnoses Varicose veins of left lower extremity with inflammation I83.12
== END 2024-09-20 11:05 | disposition home or self-care (01) ==
PROVIDERS: PCP Internal Medicine; Visit Provider Surgery Vascular Surgery
DX: I83.12 Varicose veins of left lower extremity with inflammation (principal)
CPT/HCPCS: 99214

== ENCOUNTER → 2024-09-20 10:42 | Outpatient (BNVA) | payer BC, SELFPAY | PROVIDERS: PCP Internal Medicine; Visit Provider Surgery Vascular Surgery ==

== ENCOUNTER → 2024-11-16 09:11 | Outpatient (BNVA) | payer BC, SELFPAY | PROVIDERS: PCP Internal Medicine; Visit Provider Surgery Vascular Surgery | DX: I83.12 Varicose veins of left lower extremity with inflammation (principal) | CPT/HCPCS: 37766; J2003 ==

== ENCOUNTER 2024-11-27 06:04 | Outpatient (REF) | payer BC, SELFPAY ==
--- OUTSIDE RECORDS SUMMARY | 2024-11-27 06:07 | XMS_ITS ---
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 Name Role Phone Warren Goodman MD Primary Care Provider Jason Taylor Unavailable [phone] ALLERGIES No Known Allergies REASON FOR VISIT Patient presents today for a SCREENING COLON PROBLEMS Problem Type ICD Code Onset Dates Problem Status W/U Status Risk SNOMED Code Notes Problem Colon cancer screening (Z12.11) Active confirmed Colon cancer screening (753446832) Problem Encounter for other preprocedural examination (Z01.818) Active confirmed Pre-procedure evaluation check (943468851) VITAL SIGNS BMI 25.16 kg/m2 09/27/2024 Blood pressure systolic 00 mm Hg 09/27/20 24 Blood pressure diastolic 00 mm Hg 024 Height 74 in 09/27/2024 Weight 196 lbs 09/27/2024 Encounters Encounter Location Date Provider Diagnosis [facility] [address] [place] [address] 09/27/2024 Jason Hernández Colon cancer screeni ng Z12.11 and Encounter for other preprocedural examination Z01.818 ASSESSMENTS Encounter Date Diagnosis Assessment Notes Treatment Notes Treatment Clinical Notes 09/27/2024 Colon cancer screening (ICD-10 - Z12.11) 09/27/2024 Encounter for other preprocedural examination (ICD-10 - Z01.818) PLAN OF TREATMENT Future Test Test Name Order Date COLONOSCOPY 09/27/2024 Next Appt Details Follow Up: prn, Reason: Provider Name:Jason Hernández , 01/28/2025 07:30:00 AM, [address] [place] [address], [id number], Progress Notes * Examination Category Sub-Category Detail Notes General Examination GENERAL APPEARANCE: pleasant , well nourished, well developed, in no acute distress HEAD: EYES: sclera non-icteric EARS: NOSE: THROAT: NECK/THYROID: no cervical lymphade nopathy, neck supple HEART: S1, S2 normal CHEST: LUNGS: clear to auscultatio n bilaterally ABDOMEN: normal bowel sounds, no guarding or rigidity, no guarding or rigidity, no masses palpable, soft, nontender, nondistended NEUROLOGIC: alert and oriented SKIN: nonjaundiced, no spi smith angiomata EXTREMITIES: no edema PERIPHERAL PULSES: BACK: BREASTS: MUSCULOSKELETAL: MALE GENITOURINARY: LYMPH NODES: RECTAL EXAM: FEMALE GENITOURINARY: ORAL CAVITY: mucosa moist
--- OUTSIDE RECORDS SUMMARY | 2024-11-27 06:07 | XMS_ITS | Patient Health Record ---
Author Organization [facility] Address [address] [place] [address] Care Team Providers Care Medical Records Custodian Name Role Phone Warren Goodman MD Primary Care Provider Jason Taylor Unavailable [phone] ALLERGIES No Known Allergies REASON FOR REFERRAL No Information SOCIAL HISTORY Sex Assigned At : Social History Observation Description Sex Assigned At Unknown PROBLEMS Problem Type ICD Code Onset Dates Problem Status W/U Status Risk SNOMED Code Notes Problem Colon cancer screening (Z12.11) Active confirmed Colon cancer screening (772229641) Problem Encounter for other preprocedural examination (Z01.818) Active confirmed Pre-procedure evaluation check (659724984) VITAL SIGNS Blood pressure diastolic 00 mm Hg 09/27/2024 Height 74 in 09/27/2024 Blood pressure systolic 00 mm Hg 09/27/2024 Weight 196 lbs 09/27/2024 BMI 25.16 kg/m2 09/27/2024 Encounters Encounter Location Date Provider Diagnosis [facility] [address] [place] [phone] 09/27/2024 Jason Hernández Colon cancer screeni ng Z12.11 and Encounter for other preprocedural examination Z01.818 ASSESSMENTS Encounter Date Diagnosis Assessment Notes Treatment Notes Treatment Clinical Notes 09/27/2024 Colon cancer screening (ICD-10 - Z12.11) 09/27/2024 Encounter for other preprocedural examination (ICD-10 - Z01.818) PLAN OF TREATMENT Future Test Test Name Order Date COLONOSCOPY 04/09/2014 COLONOSCOPY 09/27/2024 Next Appt Details Provider Name:Jason Hernández , 01/28/2025 07:30:00 AM, [address] , [place], [place], [phone], Insurance Providers Payer Name Payer Address Payer Phone Subscriber Number Group Number Insured Name Patient Relationship to Insured Coverage Start Date Coverage End Date [facility] [address] [place] [address] [phone] [id number] RIGOBERTO GARCIA Self - patient is the insured MEDICAL (GENERAL) HISTORY Medical History History ICD Code Denies [place],DM,CVA,Lung disease,renal dise ase Screening Colonoscopy in 2013 with [facility] th only a hyperplastic polyp Reports a negative EGD in approx 5 years ago Surgical History Surgery Date(Month/Year) Appendectomy 1984 Multiple knee surgeries 2023 Vein stripping in the past, scheduled again for 11/16/[address] Kirkpatrick
[2024-11-27 06:15] LABS: MANUAL DIFF FLAG NO
[2024-11-27 07:38] LABS: Basophils Percent Auto 0.9 % (0-2); Eosinophils Absolute Auto 0.2 X10*3/uL (0.0-0.4); Eosinophils Percent Auto 4.6 % (0-4); Hematocrit 43.8 % (42.0-52.0); Hemoglobin 14.3 g/dl (14.0-18.0); Imm Gran Abs Auto 0.01 X10*3/uL (0.00-0.03); Imm Gran Pct Auto 0.2 % (0.0-0.4); Lymphocytes Absolute Auto 1.5 X10*3/uL (1.2-4.9); Lymphocytes Percent Auto 32.2 % (20-40); Mean Corpuscular HGB Conc 32.6 g/dl (31.0-36.0); Mean Corpuscular Hemoglobin 29.3 pg (27.0-33.0); Mean Corpuscular Volume 89.8 fL (80.0-98.0); Mean Platelet Volume 11.8 fL (9.4-12.4); Monocytes Absolute Auto 0.5 X10*3/uL (0.1-1.2); Monocytes Percent Auto 11.2 % (2-11); Neutrophils Absolute Auto 2.3 x10*3/uL (2.0-8.3); Neutrophils Percent Auto 50.9 % (45-73); Platelet Count 135 X10*3/uL (160-400); Red Blood Count 4.88 X10*6/uL (4.60-5.80); Red Cell Distribution Width 13.2 % (11.0-16.0); White Blood Count 4.6 X10*3/uL (4.8-10.8)
[2024-11-27 08:05] LABS: Alanine Aminotransferase 18 U/L (0-40); Albumin Level 4.3 g/dL (3.5-5.0); Alkaline Phosphatase 57 U/L (39-117); Anion Gap 11 (12-20); Aspartate Amino Transferase 18 U/L (5-37); Bilirubin Total 0.6 mg/dL (0.0-1.0); Blood Urea Nitrogen 24 mg/dL (9-16); Calcium 8.9 mg/dL (8.4-10.2); Carbon Dioxide 23 mmol/L (22-29); Chloride 111 mmol/L (96-108); Cholesterol 195 mg/dL (<200); Estimated Glomerular Filt Rate > 60; Glucose Random 91 mg/dL (60-115); HDL Cholesterol 79 mg/dL (>40); LDL Cholesterol Calculated 104 mg/dL (<100); Potassium 4.1 mmol/L (3.3-5.1); Sodium 141 mmol/L (135-145); Total Protein 7.3 g/dL (6.5-8.0); Triglycerides 61 mg/dL (<150)
[2024-11-27 08:13] LABS: Prostate Specific Antigen 0.78 ng/mL (<0.05-4.0)
== END 2024-11-27 06:05 | disposition home or self-care (01) ==
LOC: HO.LAB 06:04
PROVIDERS: PCP Internal Medicine; Visit Provider Internal Medicine
DX: Z00.00 Encounter for general adult medical examination without abnormal findings (principal); I10 Essential (primary) hypertension; I12.9 Hypertensive chronic kidney disease with stage 1 through stage 4 chronic kidney disease, or unspecified chronic kidney disease; N18.9 Chronic kidney disease, unspecified; Z12.5 Encounter for screening for malignant neoplasm of prostate
CPT/HCPCS: 36415; 80053; 80061; 84153; 85025

== ENCOUNTER 2024-11-29 08:49 | Outpatient (AMB) | payer BC, SELFPAY ==
--- OUTSIDE RECORDS SUMMARY | 2024-11-29 09:01 | XMS_ITS ---
Author Organization [facility] Address [address] [place] [address] Care Team Providers Care Insulation Board Coater Operator Name Role Phone Warren Goodman MD Primary Care Provider Jason Taylor Unavailable [phone] ALLERGIES No Known Allergies REASON FOR VISIT Patient presents today for a SCREENING COLON PROBLEMS Problem Type ICD Code Onset Dates Problem Status W/U Status Risk SNOMED Code Notes Problem Colon cancer screening (Z12.11) Active confirmed Colon cancer screening (289733372) Problem Encounter for other preprocedural examination (Z01.818) Active confirmed Pre-procedure evaluation check (899247720) VITAL SIGNS BMI 25.16 kg/m2 09/27/2024 Blood pressure systolic 00 mm Hg 09/27/20 24 Blood pressure diastolic 00 mm Hg 024 Height 74 in 09/27/2024 Weight 196 lbs 09/27/2024 Encounters Encounter Location Date Provider Diagnosis [facility] [address] [place] [address] 09/27/2024 Jason Hernández Colon cancer screeni ng [...] Provider Name:Jason Hernández , 01/28/2025 07:30:00 AM, [address] [place] [address], [phone], Progress Notes * Examination Category Sub-Category Detail [...]
--- OUTSIDE RECORDS SUMMARY | 2024-11-29 09:01 | XMS_ITS | Patient Health Record ---
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 Electron Beam Machine Name Role Phone Warren Goodman MD Primary Care Provider Jason Taylor Unavailable [phone] ALLERGIES No Known Allergies REASON FOR REFERRAL No Information SOCIAL HISTORY Sex Assigned At : Social History Observation Description Sex Assigned At Unknown PROBLEMS Problem Type ICD Code Onset Dates Problem Status W/U Status Risk SNOMED Code Notes Problem Colon cancer screening (Z12.11) Active confirmed Colon cancer screening (315770286) Problem Encounter for other preprocedural examination (Z01.818) Active confirmed Pre-procedure evaluation check (687741481) VITAL SIGNS Blood pressure diastolic 00 mm Hg 09/27/2024 Height 74 in 09/27/2024 Blood pressure systolic 00 mm Hg 09/27/2024 Weight 196 lbs 09/27/2024 BMI 25.16 kg/m2 09/27/2024 Encounters Encounter Location Date Provider Diagnosis [facility] [address] [place] [phone] 09/27/2024 Jason Hernández Colon cancer screeni ng [...] 01/28/2025 07:30:00 AM, [address] , [place], [place], [id number], Insurance Providers Payer Name Payer Address Payer Phone Subscriber Number Group Number Insured Name Patient Relationship to Insured Coverage Start Date Coverage End Date [facility] [address] [place] [address] [id number] RIGOBERTO GARCIA Self - patient is the insured MEDICAL (GENERAL) HISTORY Medical History History ICD Code Denies [place],DM,CVA,Lung disease,renal dise ase Screening Colonoscopy in 2013 with [facility] th only a hyperplastic polyp Reports a negative EGD in approx 5 years ago Surgical History Surgery Date(Month/Year) Appendectomy 1984 Multiple knee surgeries 2023 Vein stripping in the past, scheduled again for 11/16/[address] Kirkpatrick
--- NOTE | 2024-11-29 09:05 | A.OFFVIS_ITS ---
Vital Signs 11/29/24 09:06 Height 6 ft 2 in Weight 193 lb BMI 24.8 Intake Visit Reasons: 2 week Left Micro Follow up 11/16/24 Intake Note: 2 week Left micro follow up 11/16/24. Pt states his leg is doing well and has had no pain. Accompanied by: Self / Same As Patient Allergies No Known Allergies Allergy (Verified 11/29/24 09:08) [facility] 2 week Left Micro Follow up 11/16/24: Details: Very pleasant 64-year-old gentleman presents for follow-up status post left lower extremity microphlebectomy. He reports he is doing significantly better. He does have a fair amount of varicosities still remaining that have been a source of pain and discomfort for him. He now presents to us for routine postprocedure follow-up. Of note he has been concerned about his overall kidney function. On the last 3 consecutive blood draws his BUN has been elevated. Reports no other difficulties. Now for venous follow-up. 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 Review of Systems Const Reports as per HPI ENT Reports no additional complaints Card Denies chest pain, Denies chest pain at rest and Denies chest pain with activity Resp Denies chest congestion and Denies cough GI Reports no additional complaints Musc Details: pain over varicosities, aching of lower extremities, swelling, cramping, heaviness and tiredness, itching Denies abnormal gait Skin/Breast Reports pruritus and Denies wounds Neuro Reports no additional complaints and Denies abnormal gait Psych Denies no additional complaints Physical Exam Vital Signs: BMI result Body Mass Index 24.8 Const General: cooperative, healthy appearing and comfortable Orientation/consciousness: oriented to person, oriented to place and oriented to time Neck Carotids: no bruits Chest Chest palpation & inspection: normal inspection of the chest and normal palpation of entire chest wall Resp Effort & Inspection: normal respiratory effort and able to speak in complete sentences Cardio Rate: regular rate Heart sounds: S1 normal heart sound present and S2 normal heart sound present Peripheral pulses: Peripheral pulses 2+ throughout GI Inspection: Yes normal to inspection Skin Other: +2 edema, large rope-like varicosities greater than 4 mm left leg CEAP Classification C4 - skin color changes Ep - Etiology Primary As - superficial veins P - reflux General skin exam: dry skin Neuro General: oriented to person, oriented to place and oriented to time Extrem Right lower extremity: full ROM, normal capillary refill and edema Left lower extremity: full ROM, normal capillary refill and edema Psych Mental Status: mental status grossly normal Results Reviewed Results Reviewed: Brief summary of venous insufficiency testing is as follows: right great saphenous vein: negative right small saphenous vein: negative right accessory vein: none present left great saphenous vein: negative left small saphenous vein: negative left accessory vein: none present Please note there is no evidence of any venous aneurysms or significant tortuosity Assessment & Plan Assessment & Plan (1) Varicose veins of left lower extremity with inflammation: Comment: 11/16/2024 - left leg microphlebectomy Code(s): I83.12 - Varicose veins of left lower extremity with inflammation Category: Medical Plan: This patient has varicose veins with inflammation. He does have remaining residual varicosities after the last procedure. They continue to be a source of discomfort for the patient. The patient has tried conservative treatment with compression, leg elevation and exercise program for over 3 months time. They have been compliant with all treatment. This has provided minimal relief for the patient. I do not anticipate this course of treatment will alter the underlying etiology. The patient has been scheduled for lower extremity venous treatment inclusive of --- left leg microphlebectomy. Risks, benefits, and complications of this procedure has been discussed in detail with the patient including but not limited to bleeding, infection, and the development of a DVT. The patient has demonstrated a clear understanding and has consented. We will schedule the patient as soon as possible. Thank you for allowing us to participate in this patient's care. If there are any questions or concerns please do not hesitate to contact us. (2) Kidney disease: Code(s): N28.9 - Disorder of kidney and ureter, unspecified Category: Medical Plan: Patient with persistently elevated BUN. Although GFR has been within normal limits patient has been quite concerned about this. Will refer for nephrology to ensure there is no significant underlying cause. Thank you Orders: Referrals Nephrology Referral N28.9 - Disorder of kidney and ureter, unspecified Coding Level of Care Code Est Pt Level 4 (19363) Diagnoses Varicose veins of left lower extremity with inflammation I83.12 Kidney disease N28.9
[2024-11-29 09:06] VITALS: BMI 24.8
== END 2024-11-29 09:32 | disposition home or self-care (01) ==
PROVIDERS: PCP Internal Medicine; Visit Provider Surgery Vascular Surgery
DX: I83.12 Varicose veins of left lower extremity with inflammation (principal); N28.9 Disorder of kidney and ureter, unspecified
CPT/HCPCS: 99214

== ENCOUNTER 2024-12-14 10:39 | Outpatient (AMB) | payer BC, SELFPAY ==
--- NOTE | 2024-12-14 10:44 | HO.NEPHOV ---
Vital Signs 12/14/24 10:46 Height 6 ft 2 in Weight 199 lb 8 oz BMI 25.6 BP 120/70 Blood Pressure Location Lt brachial Position Sitting Pulse 62 Pulse Source Pulse Oximeter Pulse Oximetry (%) 97 Oxygen Delivery Method Room Air Intake Visit Reasons: INP: Disorder of kidney and ureter-Conf Named Account Executive Required: No Accompanied by: Self / Same As Patient Allergies No Known Allergies Allergy (Verified 01/08/25 08:59) HPI Comments Details: I had the pleasure of seeing Wei in consultation for high BUN. His serum creatinine at that time has been 1.01. He has had COVID couple of years ago. In 2019 his serum creatinine was 1.24. He does not take any diuretics and maintain good hydration. He was not on steroids and has not had hemetemesis or melena or drop in Hb. He has not taken any antibiotics recently. He has no tachycardia, drop in BP or orthostatic symptoms. He has no family H/O renal disease. His serum creatinine of 1.24 apparently was coinciding at the time of his COVID infection. He has some arthritic complaints but does not take any NSAID's regularly. He denied intra articular steroids close to the time of the blood draw. He has no hemoptysis, epistaxis or any other systemic complaints.His BP is normal. 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 Review of Systems Const All systems reviewed & are unremarkable except as noted in HPI and below Physical Exam Vital Signs: Last Vital Signs Pulse 62 12/14/24 10:46 BP 120/70 12/14/24 10:46 Pulse Ox 97 12/14/24 10:46 Oxygen Delivery Method Room Air 12/14/24 10:46 BMI result Body Mass Index 25.6 Const General: comfortable and no acute distress Orientation/consciousness: patient oriented x3 HEENT Head: Yes normocephalic Mouth: Normal oral and palatal mucosa present Eyes EOM: EOMs intact bilaterally Neck Neck: Yes supple Resp Auscultation: clear to auscultation bilaterally Cardio Jugular venous distension: no JVD Rate: regular rate GI Palpation (GI): Soft to palpation Auscultation: normal bowel sounds General: Yes no CVA tenderness Back/Spine/Pelvis Back: no CVA tenderness Skin General skin exam: no rashes or lesions noted Neuro General: patient oriented x3 and moves all extremities Extrem General: Yes no pedal edema Results Reviewed Nephrology Results: Hgb 14.3 g/dl (14.0-18.0) 11/27/24 WBC 4.6 X10*3/uL (4.8-10.8) L 11/27/24 Plt Count 135 X10*3/uL (160-400) L 11/27/24 Sodium 141 mmol/L (135-145) 11/27/24 Potassium 4.1 mmol/L (3.3-5.1) 11/27/24 Chloride 111 mmol/L (96-108) H 11/27/24 Carbon Dioxide 23 mmol/L (22-29) 11/27/24 BUN 24 mg/dL (9-16) H 11/27/24 Creatinine 1.01 mg/dL (0.5-1.4) 11/27/24 Calcium 8.9 mg/dL (8.4-10.2) 11/27/24 Assessment & Plan Assessment & Plan (1) High blood urea nitrogen (BUN): Code(s): R79.9 - Abnormal finding of blood chemistry, unspecified Category: Medical Plan Wei might have had TAMIKO with mild tubular injury with his serum creatinine going up to 1.24 in 2019. He had COVID at that time. Whether the COVID had caused his serum creatinine to go up or whether it was due to change in hemodynamics is unclear. Its a possibility that the mild TAMIKO sustained at that time did not resolve completely to baseline with drop in GFR. His BP is good and his serum creatinine is stable. He is not known to have protienuria or M/S hematuria. He maintains good hydration and avoids NSAID's. He is not on diuretics, steroids and has not had a GIB. All these have been discussed and explained in detail. I ordered follow up lab work. Answered all questions. Orders: Orders Blood Urea Nitrogen 1 Year R79.9 - Abnormal finding of blood chemistry, unspecified UA and rflx microscopic 1 Year R79.9 - Abnormal finding of blood chemistry, unspecified Protein Creatinine Ratio, Ur 1 Year R79.9 - Abnormal finding of blood chemistry, unspecified Creatinine Clearance Urine 24U 3 Months R79.9 - Abnormal finding of blood chemistry, unspecified Creatinine 3 Months R79.9 - Abnormal finding of blood chemistry, unspecified Electrolytes 3 Months R79.9 - Abnormal finding of blood chemistry, unspecified Blood Urea Nitrogen 3 Months R79.9 - Abnormal finding of blood chemistry, unspecified Creatinine Clearance Urine 24U 1 Year R79.9 - Abnormal finding of blood chemistry, unspecified Creatinine 1 Year R79.9 - Abnormal finding of blood chemistry, unspecified Electrolytes 1 Year R79.9 - Abnormal finding of blood chemistry, unspecified Coding Level of Care Code New Pt Level 4 (06659) Diagnoses High blood urea nitrogen (BUN) R79.9
[2024-12-14 10:46] VITALS: BP 120/70; PULSE 62; O2SAT 97; BMI 25.6
--- OUTSIDE RECORDS SUMMARY | 2024-12-14 12:10 | XMS_ITS | Encounter Summary ---
Author Organization [facility] Address [address] [place] [address] Care Team Providers Care Talent Acquisition Relationship Manager Name Role Phone Abdoulaye Moore MD Primary Care Provider [phone] [facility], [facility], [facility] Primary Care Provider Unavailabl e Reason for Visit * Reason Onset Date Comments Advice 01/15/2022 labs ordered by MAURICE Khanna Encounter Details Date Type Department Care Team Description 01/15/2022 Pt. Non Urgent Medical Question Adult Medicine [address] [id number] Abdoulaye Moore MD [address] [place] [id number] Social History Tobacco Use Types Packs/Day Years Used Date Smoking Tobacco: Never Smokeless Tobacco: Never Alcohol Use Standard Drinks/Week Comments Yes 3 (1 standard drink = 0.6 oz pur e alcohol) Social Isolation Answer Date Recorded In a typical week, how many times do you talk on the phone with family, friends, or neighbors? More than three times a week 12/03/2019 How often do you get togethe r with friends or relatives? Once a week 12/03/2019 How often do you attend chur ch or nondenominational services? Never 12/03/2019 Do you belong to any clubs o r organizations such as orthodox groups, unions, fraternal or athletic groups, or school groups? Yes 12/03/2019 How often do you attend meet ings of the clubs or organizations you belong to? More than 4 times per year 12/03/2019 Are you now , , , , never or living with a partner? Living with partner 12/03/2019 Physical Activity Answer Date Recorded On average, how many days pe r week do you engage in moderate to strenuous exercise (like walking fast, running, jogging, dancing, swimming, biking, or other activities that cause a light or heavy sweat)? 7 days 12/03/2019 On average, how many minutes do you engage in exercise at this level? 60 min 12/03/2019 Stress Answer Date Recorded Do you feel stress - tense, restless, nervous, or anxious, or unable to sleep at night because your mind is troubled all the time - these days? Only a little 12/03/2019 Financial Resource Strain Answer Date R ecorded How hard is it for you to pa y for the very basics like food, housing, medical care, and heating? Not hard at all 12/03/2019 Intimate Partner Violence Answer Date R ecorded Within the last year, have y ou been afraid of your partner or ex-partner? No 12/03/2019 Within the last year, have y ou been humiliated or emotionally abused in other ways by your partner or ex-partner? No Within the last year, have y ou been kicked, hit, slapped, or otherwise physically hurt by your partner or ex-partner? No 12/03/2019 Within the last year, have y ou been raped or forced to have any kind of sexual activity by your partner or ex-partner? No 12/03/2019 Food Insecurity Answer Date Recorded Within the past 12 months, y ou worried that your food would run out before you got money to buy more. Never true 12/03/2019 Within the past 12 months, t he food you bought just didn't last and you didn't have money to get more. Never true 12/03/2019 Transportation Needs Answer Date Record ed In the past 12 months, has l ack of transportation kept you from medical appointments or from getting medications? No 11/17 In the past 12 months, has l ack of transportation kept you from meetings, work, or getting things needed for daily living? No 12/03/2019 Education Answer Date Recorded What is the highest level of school you have completed or the highest degree you have received? 12th grade 01/14/2022 Sex Assigned at Date Recorded Not on file Job Start Date Occupation Industry Not on file Not on file Not on file COVID-19 Exposure Response Date Recorded In the last 10 days, have martin u been in contact with someone who was confirmed or suspected to have Coronavirus/COVID-19? No / Unsure 01/14/2022 8:45 AM EDT documented as of this encounter Miscellaneous Notes * Telephone Encounter - Ann Carson M.A. - 01/15/2022 12:58 PM EDTFrom: Wei Lyn To: Joseline Moore Sent: 01/15/2022 12:51 PM EDT Subject: recent blood work concerns Shira, my latest results from blood work tests show levels above normal for LDL and MPV . I have been dealing with anxiety issues of late more than before. Can this be causing the elevated levels? I inquired about anxiety issues with the the nurse practitioner. It didn't get far. thank you, Wei Lyn documented in this encounter Plan of Treatment Not on file documented as of this encounter Visit Diagnoses Not on filedocumented in this encounter Care Teams Talent Acquisition Relationship Manager Relationship Specialty Start Date End Date Abdoulaye Moore MD [address] [place] [id number] PCP - General Internal Medicine 08/11/21 01/18/23 [facility], [address] [address] PCP - General Internal Medicine 01/19/23 documented as of this encounter
--- OUTSIDE RECORDS SUMMARY | 2024-12-14 12:10 | XMS_ITS | Encounter Summary ---
Author Organization [facility] Address [address] [place] [address] Care Team Providers Care Antique Finisher Name Role Phone Abdoulaye Moore MD Primary Care Provider [phone] Community, Pcp [facility] Encounter Details Date Type Department Care Team Description 01/21/2022 [facility] Medical Records [address] [place] [address] Abstract, Provider Social History Tobacco Use Types Packs/Day Years [...] 12/03/2019 How often do you attend chur or pentecostal services? Never 12/03/2019 Do you belong to any clubs o r organizations such as quaker groups, unions, fraternal or athletic groups, or [...] Recorded In the last 10 days, have yo u been in contact with someone who was confirmed or suspected to have Coronavirus/COVID-19? No / Unsure 01/14/2022 8:45 AM EDT documented as of this encounter Plan of Treatment Not on file documented as of this encounter Visit Diagnoses Not on filedocumented in this encounter Care Teams Antique Finisher Relationship Specialty Start Date End Date Abdoulaye Moore MD [address] [place] [id number] PCP - General Internal Medicine 08/11/21 01/18/23 [facility], [address] [address] PCP - General Internal Medicine 01/19/23 documented as of this encounter
--- OUTSIDE RECORDS SUMMARY | 2024-12-14 12:10 | XMS_ITS | Encounter Summary ---
Author Organization [facility] Address [address] [place] [address] Care Team Providers Care Base Cloth Inspector Name Role Phone Gabriella Hogue MD Primary Care Provider Jason Dickey DO Primary Care Provider Nupur Abdoulaye Kessler MD Primary Care Provider [phone] [facility], Pcp Primary Care Provider Unavailabl e Encounter Details Date Type Department Care Team Description 04/25/2017 Sign Hanger Report Medical Records [address] [place] [address] [facility] Social History Tobacco Use Types Packs/Day Years Used Date Smoking Tobacco: Never Alcohol Use Standard Drinks/Week Comments No 0 (1 standard drink = 0.6 oz pure alcohol) a couple of beers on weekends, none during the week Social Isolation Answer Date Recorded In a typical week, how many times do you talk on the phone with family, friends, or neighbors? More than three times a week 12/03/2019 How often do you get togethe r with friends or relatives? Once a week 12/03/2019 How often do you attend chur ch or alevism services? Never 12/03/2019 Do you belong to any clubs o r organizations such as episcopalian groups, unions, fraternal or athletic groups, or [...] things needed for daily living? No 12/03/2019 Sex Assigned at Date Recorded Not on file Job Start Date Occupation Industry Not on file Not on file Not on file documented as of this encounter Plan of Treatment Not on file documented as of this encounter Visit Diagnoses Not on filedocumented in this encounter Care Teams Base Cloth Inspector Relationship Specialty Start Date End Date Gabriella Hogue MD PCP - General Internal Medicine 01/24/17 04/23/21 Jason Flower DO PCP - General Internal Medicine 04/24/21 Abdoulaye Moore MD [address] [place] [id number] PCP - General Internal Medicine 08/11/21 01/18/23 [facility], [address] [address] PCP - General Internal Medicine 01/19/23 documented as of this encounter
--- OUTSIDE RECORDS SUMMARY | 2024-12-14 12:10 | XMS_ITS ---
Author Organization [facility] Address [address] [place] [address] Care Team Providers Care Knife Cutter Name Role Phone Warren Goodman MD Primary Care Provider Jason Taylor Unavailable [phone] ALLERGIES No Known Allergies REASON FOR VISIT Patient presents today for a SCREENING COLON PROBLEMS Problem Type ICD Code Onset Dates Problem Status W/U Status Risk SNOMED Code Notes Problem Colon cancer screening (Z12.11) Active confirmed Colon cancer screening (975448436) Problem Encounter for other preprocedural examination (Z01.818) Active confirmed Pre-procedure evaluation check (322833136) VITAL SIGNS Blood pressure systolic 00 mm Hg 09/27/20 24 Blood pressure diastolic 00 mm Hg 024 Height 74 in 09/27/2024 Weight 196 lbs 09/27/2024 BMI 25.16 kg/m2 09/27/2024 Encounters Encounter Location Date Provider Diagnosis [facility] [address] [place] [address] 09/27/2024 Jason Hernández Colon cancer screeni ng [...] Provider Name:Jason Hernández , 01/28/2025 07:30:00 AM, [address] [place] [address], [phone], Progress Notes * Examination Category Sub-Category Detail [...]
--- OUTSIDE RECORDS SUMMARY | 2024-12-14 12:10 | XMS_ITS | Encounter Summary ---
Author Organization [facility] Address [address] [place] [address] Care Team Providers Care Traveling Engineer Name Role Phone Gabriella Hogue MD Primary Care Provider Jason Dickey DO Primary Care Provider Nupur Abdoulaye Kessler MD Primary Care Provider [facility], Pcp [facility] Encounter Details Date Type Department Care Team Description 04/17/2021 Pt. Non Urgent Medical Question Adult Medicine [address] [address] Rosemarie Sultana PA-C [address] [place] [address] Social History Tobacco Use Types Packs/Day Years [...] often do you attend chur ch or roman catholic services? Never 12/03/2019 Do you belong to any clubs o r organizations such as zoroastrianism groups, unions, fraternal or athletic groups, or [...] on filedocumented in this encounter Care Teams Traveling Engineer Relationship Specialty Start Date End Date Gabriella Hogue MD PCP - General Internal Medicine 01/24/17 04/23/21 Jason Flower DO PCP - General Internal Medicine 04/24/21 Abdoulaye Moore MD [address] [place] [id number] PCP - General Internal Medicine 08/11/21 01/18/[address] [address] PCP - General Internal Medicine 01/19/23 documented as of this encounter
--- OUTSIDE RECORDS SUMMARY | 2024-12-14 12:11 | XMS_ITS | Encounter Summary ---
Author Organization [facility] Address [address] [place] [address] Care Team Providers Care Supervisor [employer] Name Role Phone Gabriella Hogue MD Primary Care Provider Jason Dickey DO Primary Care Provider Nupur Abdoulaye Kessler MD Primary Care Provider [phone] [facility], Pcp Primary Care Provider Unavailabl e Encounter Details Date Type Department Care Team Description 12/27/2019 It Security Consulting Director Report Medical Records [address] [place] [address] Brian Caldwell, PAHarveyC Social History Tobacco Use Types Packs/Day Years [...] often do you attend chur ch or denominational services? Never 12/03/2019 Do you belong to any clubs o r organizations such as restoration groups, unions, fraternal or athletic groups, or [...] on filedocumented in this encounter Care Teams Supervisor [employer] Relationship Specialty Start Date End Date Gabriella Hogue MD PCP - General Internal Medicine 01/24/17 04/23/21 Jason Flower DO PCP - General Internal Medicine 04/24/21 Abdoulaye Moore MD [address] [place] [id number] PCP - General Internal Medicine 08/11/21 01/18/[address] [address] PCP - General Internal Medicine 01/19/23 documented as of this encounter
--- OUTSIDE RECORDS SUMMARY | 2024-12-14 12:11 | XMS_ITS | Clinical Summary ---
Author Organization [facility] Address [address] [place] [address] Care Team Providers Care Physiology Teacher Name Role Phone Community, Pcp Primary Care Provider Unavailabl e Allergies No known active allergies Medications No known medications Active Problems Problem Noted Date Erectile dysfunction 01/15/[address] [facility] Osteoarthritis of right knee 01/15/2022 Overview: [facility] History of compression fracture of spine 01/15/2022 Overview: T12-L2 ([facility]) Hyperplastic colon polyp 01/15/2022 Overview: Repeat CN due 06/2024 Family history of melanoma 01/15/2022 Overview: mother Seborrheic keratoses 01/14/2022 Tinnitus 01/14/2022 Overweight (BMI 25.0-29.9) Immunizations Name Administration Dates Next Due COVID-19 (ADAM AND ADAM) 01/21/2021 COVID-19 (ADAM AND ADAM) PT REPORTED 01/22 COVID-19 (Pfizer) 09/03/2021 Shingrix (Recombinant zoster vaccine) 09/03/2021 Tdap 11/08/2018 Family History Medical History Relation Name Comments Cirrhosis Brother 1 Isaías non-alcoholic No Known Problems Brother 2 Jong CAD Father colon polyps Lymphoma Maternal Grandfather Hodgkin s Cancer of the Pancreas Mother ?shayla st cancer?; melanoma No Known Problems Sister Airam Seizures Son 1 Alexis petit mal No Known Problems Son 2 Gabe No Known Problems Son 3 Riki Psoriasis Son 4 Noe Diabetes Uncle 1 Paternal HTN Lymphoma Uncle 2 Maternal Hodgkins; alzhe manoj's Lymphoma Uncle 3 Maternal Hodgkins Relation Name Status Comments Brother 1 Isaías Brother 2 Jong Alive Father Maternal Grandfather Maternal Grandmother Mother Paternal Grandfather Paternal Grandmother Sister Airam Alive Son 1 Alexis Alive Son 2 Gabe Alive Son 3 Riki Alive Son 4 Noe Alive Uncle 1 Paternal Uncle 2 Maternal Uncle 3 Maternal Alive Social History Tobacco Use Types Packs/Day Years [...] week 12/03/2019 How often do you attend [facility] or voodoo services? Never 12/03/2019 Do you belong to any clubs o r organizations such as pentecostalism groups, unions, fraternal or athletic groups, or [...] file Not on file Not on file Last Filed Vital Signs Vital Sign Reading Time Taken Comments Blood Pressure 130/78 02/24/2022 10:14 AM EDT C Pulse 68 02/24/2022 10:14 AM EDT Temperature 37.3 ??C (99.1 ??F) 02/24/2022 10:14 AM E DT Respiratory Rate 16 04/24/2021 2:11 PM EDT Oxygen Saturation 97% 04/24/2021 2:11 PM EDT Inhaled Oxygen Concentration - - Weight 93.4 kg (206 lb) 02/24/2022 10:14 AM EDT Height 188 cm (6' 2 ) 02/24/2022 10:14 AM EDT Body Mass Index 26.45 02/24/2022 10:14 AM EDT Plan of Treatment Health Maintenance Due Date Last Done Comments SHINGLES VACCINE (2 of 2) 10/29/2021 09/03/2021 BASELINE HEALTH EXAM 40-64 01/16/202401/15, 01/14/2022, 12/03/2019, Additional history exists Covid-19 Vaccine (2022-11 4 season) 2024 09/03/2021, 01/22/2021, 01/21/2021 INFLUENZA (#1) 2024 12/03/2019 (Refu sed), 11/08/2018 (Refused) COLON CANCER SCREENING 07/16/2024 4, 07/16/2014 (External Completion) BMI CHECK/ADVISE 10/17/2024 01/14/2022, , 12/03/2019, Additional history exists CHOLESTEROL SCREENING 01/15/2027 01/15/2022 , 12/03/2019, 11/11/2018, Additional history exists PNEUMOCOCCAL VACCINE FOR HIG H RISK PATIENTS (#1) 2027 DTAP/TDAP/TD (2 - Td or Tdap) 11/08/2028 11/08/2018 HEPATITIS C SCREENING Completed 01/24/2017 Care Teams Physiology Teacher Relationship Specialty Start Date End Date Community, Pcp PCP - General Internal Medicine 01/19/23
--- OUTSIDE RECORDS SUMMARY | 2024-12-14 12:11 | XMS_ITS | Patient Health Record ---
Author Organization [facility] Address [address] [place] [id number] Care Team Providers Care School Treasurer Name Role Phone Warren Goodman MD Primary Care Provider Jason Taylor Unavailable [phone] ALLERGIES No Known Allergies REASON FOR REFERRAL No Information SOCIAL HISTORY Sex Assigned At : Social History Observation Description Sex Assigned At Unknown PROBLEMS Problem Type ICD Code Onset Dates Problem Status W/U Status Risk SNOMED Code Notes Problem Colon cancer screening (Z12.11) Active confirmed Colon cancer screening (877925191) Problem Encounter for other preprocedural examination (Z01.818) Active confirmed Pre-procedure evaluation check (187793579) VITAL SIGNS Blood pressure diastolic 00 mm Hg 09/27/2024 Height 74 in 09/27/2024 Blood pressure systolic 00 mm Hg 09/27/2024 Weight 196 lbs 09/27/2024 BMI 25.16 kg/m2 09/27/2024 Encounters Encounter Location Date Provider Diagnosis [facility] [address] [place] [id number] 09/27/2024 Jason Hernández Colon cancer screeni ng [...] 01/28/2025 07:30:00 AM, [address] , [place], [place], [id number], Insurance Providers Payer Name Payer Address Payer Phone Subscriber Number Group Number Insured Name Patient Relationship to Insured Coverage Start Date Coverage End Date [facility] [address] [place] [address] [id number] RIGOBERTO GARCIA Self - patient is the insured MEDICAL (GENERAL) HISTORY Medical History History ICD Code Denies [place],DM,CVA,Lung disease,renal dise ase Screening Colonoscopy in 2013 with [facility] th only a hyperplastic polyp Reports a negative EGD in approx 5 years ago Surgical History Surgery Date(Month/Year) Appendectomy 1984 Multiple knee surgeries 2023 Vein stripping in the past, scheduled again for 11/16/[address] Kirkpatrick
== END 2024-12-14 11:23 | disposition home or self-care (01) ==
PROVIDERS: PCP Internal Medicine; Referring Provider Internal Medicine Cardiovascular Disease; Visit Provider Internal Medicine Nephrology
DX: R79.9 Abnormal finding of blood chemistry, unspecified (principal)
CPT/HCPCS: 99204

== ENCOUNTER → 2024-12-14 10:39 | Outpatient (BNVA) | payer BC, SELFPAY | PROVIDERS: PCP Internal Medicine; Referring Provider Internal Medicine Cardiovascular Disease; Visit Provider Internal Medicine Nephrology ==

== ENCOUNTER 2024-12-21 08:13 | Outpatient (AMB) | payer BC, SELFPAY ==
--- NOTE | 2024-12-21 08:24 | A.OFFVIS_ITS ---
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 Varicose veins were marked in the standing position on the left leg and the patient was then placed in the supine position. The left lower extremity was prepared and draped to allow knee flexion in the sterile field. The patient had large superficial varicose veins with significant symptoms of pain. It was ther efore determined to perform microphlebectomies of the clusters of varicose veins. The patient had bulging varicose veins which were previously marked in the standing position. A small stab incision was made longitudinally directly overlying the varicose vein in the calf and the varicose vein was grasped with a hemostat aided by a vein hook. It was then dissected as far proximally and distally as possible and avulsed. A total of 11 stab incisions were made and the procedure of stab phlebectomies was repeated 11 times. Hemostasis was checked and stab incision sites were closed with steri-strips and sterile dressing was given with gauze and krilex wrap followed by an kezia bandage. There were no complications and blood loss was minimal. Post-Op instructions were given and a follow-up appointment was recommended. [address]3920 - Phleb Veins, Extrem - up to 20 All charges added?: Procedure code (CPT) selection complete Assessment & Plan Assessment & Plan (1) Varicose veins of left lower extremity with inflammation: Comment: 11/16/2024 - left leg microphlebectomy 12/21/2024 - left leg microphlebectomy Code(s): I83.12 - Varicose veins of left lower extremity with inflammation Category: Medical Plan: See op note Coding Level of Care Code Procedure Only Diagnoses Varicose veins of left lower extremity with inflammation I83.12 CPT Codes Details - Vascular 5: 73241 - Phleb Veins, Extrem - up to 20 ([id number])
--- OUTSIDE RECORDS SUMMARY | 2024-12-21 08:32 | XMS_ITS | Patient Health Record ---
Author Organization [facility] Address [address] [place] [address] Care Team Providers Care Personnel Administrator Name Role Phone Warren Goodman MD Primary Care Provider Jason Taylor Unavailable [phone] Allergies No Known Allergies Reason For Referral No Information Problems Problem Type SNOMED Code ICD Code Onset Dates Problem Status W/U Status Risk Notes Problem Colon cancer screening (301251071) Colon cancer screening (Z12.11) Active confirmed Problem Pre-procedure evaluation check (707618126) Encounter for other preprocedural examination (Z01.818) Active confirmed Vital Signs Blood pressure diastolic 00 mm Hg 09/27/2024 Height 74 in 09/27/2024 Blood pressure systolic 00 mm Hg 09/27/2024 Weight 196 lbs 09/27/2024 BMI 25.16 kg/m2 09/27/2024 Encounters Encounter Location Date Provider Diagnosis [facility] [address] [place] [address] 09/27/2024 Jason Hernández Colon cancer screeni Z12.11 and Encounter for other preprocedural examination Z01.818 Assessments Encounter Date Diagnosis (ICD Code) Assessment Notes Treatment Notes Treatment Clinical Notes Section Notes 09/27/2024 Colon cancer screening (ICD-10 - Z12.11) Overall, Rigoberto appears quite well. Given his age, good clinical condition, and his last colonoscopy being over 10 years ago, I did recommend a followup colonoscopy for further screening purposes. We did review the rationale for that in regard to colon cancer prevention. Full consent was obtained for this, including risks of bleeding and perforation. The procedure will be done with monitored anesthesia care. Rigoberto was comfortable with this plan. Thank you again for allowing me to participate in Rigoberto's care. I shall continue to keep you advised of his progress. 09/27/2024 Encounter for other preprocedural examination (ICD-10 - Z01.818) Overall, Rigoberto appears quite well. Given his age, good clinical condition, and his last colonoscopy being over 10 years ago, I did recommend a followup colonoscopy for further screening purposes. We did review the rationale for that in regard to colon cancer prevention. Full consent was obtained for this, including risks of bleeding and perforation. The procedure will be done with monitored anesthesia care. Rigoberto was comfortable with this plan. Thank you again for allowing me to participate in Rigoberto's care. I shall continue to keep you advised of his progress. Plan Of Treatment Future Test Test Name Order Date COLONOSCOPY 04/09/2014 COLONOSCOPY 09/27/2024 Next Appt Details Provider Name:Jason Hernández , 01/28/2025 07:30:00 AM, [address] [place] [address] , [place], [place], [phone], Insurance Providers Payer Name Payer Address Payer Phone Subscriber Number Group Number Insured Name Patient Relationship to Insured Coverage Start Date Coverage End Date [facility] [address] [place] [address] [phone] [id number] JOSERIGOBERTO MATA Self - patient is the insured Medical (General) History Medical History History ICD Code Denies [place],DM,CVA,Lung disease,renal dise ase Screening Colonoscopy in 2013 with me wi th only a hyperplastic polyp Reports a negative EGD in approx 5 years ago Surgical History Surgery Date(Month/Year) Appendectomy 1984 Multiple knee surgeries 2023 Vein stripping in the past, scheduled again for 11/16/[address] Kirkpatrick
--- OUTSIDE RECORDS SUMMARY | 2024-12-21 08:32 | XMS_ITS ---
Author Organization [facility] Address [address] [place] [address] Care Team Providers Care Mothercraft Nurse Name Role Phone Warren Goodman MD Primary Care Provider Jason Taylor Unavailable [phone] Allergies No Known Allergies REASON FOR VISIT Patient presents today for a SCREENING COLON Problems Problem Type SNOMED Code ICD Code Onset Dates Problem Status W/U Status Risk Notes Problem Colon cancer screening (222212436) Colon cancer screening (Z12.11) Active confirmed Problem Pre-procedure evaluation check (046911566) Encounter for other preprocedural examination (Z01.818) Active confirmed Vital Signs Blood pressure systolic 00 mm Hg 09/27/20 24 Blood pressure diastolic 00 mm Hg 024 Height 74 in 09/27/2024 Weight 196 lbs 09/27/2024 BMI 25.16 kg/m2 09/27/2024 Encounters Encounter Location Date Provider Diagnosis [facility] [address] [place] [address] 09/27/2024 Jason Hernández Colon cancer screeni ng [...] Provider Name:Jason Hernández , 01/28/2025 07:30:00 AM, [address] [place] [address], [id number], Progress Notes * RIGOBERTO GARCIA RDOB:1960 (64 yo M)Acc No.[id number]:09/27/2024 Progress Notes Patient:?RIGOBERTO GARCIA Provider:?Jason Hernández MD :1960???Age:64 Y???Sex:Male Ambrose e:09/27/2024 Address:[address] [place], [place] [id number] Pcp:Warren Goodman MD Subjective: * Chief Complaints: * ???Patient presents today fo r a SCREENING COLON * HPI: ???incontinence:? I saw Rigoberto in the office today for evaluation of colorectal cancer screening. ?I last saw Rigoberto in 2013, at which time he underwent a screening colonoscopy that was negative other than a hyperplastic polyp. He presently feels well. He enjoys a good appetite, without any significant heartburn or dysphagia. His bowel movements have been regular and without any signs of bleeding. He denies abdominal pain, jaundice, nor unintentional weight loss. He denies any known family history of colorectal cancer. * ROS:?General/Constitutional:?Change in appetite?denies.?Chills?denies.?Fatigue?denies.?Ophthalmologic:?Comments?all negative.?ENT:?Comments?all negative.?Respiratory:?hemoptysis?denies.?Cough?denies.?Cardiovascular:?Chest pain?denies.?Orthopnea?denies.?Gastrointestinal:?Comments?See HPI for details.?Genitourinary:?Hematuria?denies.?Dysuria?denies.?Musculoskeletal:?Painful joints?denies.?Weakness?denies.?Skin:?Itching?denies.?Rash?denies.?Neurologic:?Headache?denies.?Seizures?denies.?Psychiatric:?Comments?all negative.? * Medical History:? * Surgical History:?Appendecto my 1985Multiple knee surgeries 2023Vein stripping in the past, scheduled again for 11/16/[address] Kirkpatrick * Hospitalization/Major Diagno stic Procedure:?No Hospitalization History. * Family History:?Father: dece ased, prostate.?Mother: , pancreatic cancer.? No colorectal cancer. * Social History:?Tobacco Use:?Tobacco Use/Smoking?Are you a: nonsmoker.?Drugs/Alcohol:?Alcohol Screen?Points: 4, Interpretation: Positive.?Miscellaneous:?Marital status: . 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 ???Nonsmoker; no sig alcohol. * Medications:?None * Allergies:?N.K.D.A.yes[Aller gies Verified] Objective: * Vitals:?Wt: 196 lbs, Ht: 74 in, BMI:25.16 Index, BP: 00/00 mm Hg. * Examination: ???General Examination: ?GENERAL APPEARANCE:?pleasant, well nourished, well developed, in no acute distress.?EYES:?sclera non-icteric.?ORAL CAVITY:?mucosa moist.?NECK/THYROID:?no cervical lymphadenopathy, neck supple.?SKIN:?nonjaundiced, no spider angiomata.?HEART:?S1, S2 normal.?LUNGS:?clear to auscultation bilaterally.?ABDOMEN:?normal bowel sounds, no guarding or rigidity, no guarding or rigidity, no masses palpable, soft, nontender, nondistended.?EXTREMITIES:?no edema.?NEUROLOGIC:?alert and oriented.? Assessment: * Assessment: 1.?Encounter for other prepr ocedural examination - Z01.818 (Primary)?2.?Colon cancer screening - Z12.11? Overall, Rigoberto appears quite well. Given his [...] to keep you advised of his progress. Plan: * Treatment: * Procedure Codes:?3017F COLOR ECTAL CA SCREEN DOC [id number] TOBACCO NON-OIMDY0919 BP SCR NOT PRFRM REC REASON NOS * Preventive Medicine:? ??Counseling:?Care goal follow-up plan:?Above Normal BMI Follow-up?Giving encouragement to exercise,?BMI management provided?Yes.? * Follow Up:?prn * * Sign off status: Completed true * Provider:?Jason Hernández MD Date:? 024 Generated for Dez guillaume/Ilia/eTransmitting on:?12/21/2024 08:31 AM EST History and Physical Notes * HPI (History of Present Illness) Category Sub-Category Detail Notes Category Not es incontinence I saw Rigoberto in the office today for evaluation of colorectal cancer screening. I last saw Rigoberto in 2013, at which time he underwent a screening colonoscopy that was negative other than a hyperplastic polyp. He presently feels well. He enjoys a good appetite, without any significant heartburn or dysphagia. His bowel movements have been regular and without any signs of bleeding. He denies abdominal pain, jaundice, nor unintentional weight loss. He denies any known family history of colorectal cancer. Examination Category Sub-Category Detail Notes Category Not es General Examination GENERAL APPEARANCE: pleasant , well [...]
== END 2024-12-21 09:28 | disposition home or self-care (01) ==
PROVIDERS: PCP Internal Medicine; Visit Provider Surgery Vascular Surgery
DX: I83.12 Varicose veins of left lower extremity with inflammation (principal)
CPT/HCPCS: 37765

== ENCOUNTER → 2024-12-21 08:13 | Outpatient (BNVA) | payer BC, SELFPAY | PROVIDERS: PCP Internal Medicine; Visit Provider Surgery Vascular Surgery | DX: I83.12 Varicose veins of left lower extremity with inflammation (principal) | CPT/HCPCS: 37765 ==

== ENCOUNTER 2025-01-08 08:48 | Outpatient (AMB) | payer BC, SELFPAY ==
--- NOTE | 2025-01-08 08:57 | A.OFFVIS_ITS ---
Intake Visit Reasons: 2 wk follow up Left Micro 12/21/24 Intake Note: Patient presents for 2 week follow up micro. Patient has one incision that has a bump no other complaints. Accompanied by: Self / Same As Patient Allergies No Known Allergies Allergy (Verified 01/08/25 08:59) HPI HPI 2 wk follow up Left Micro 12/21/24: Details: The patient is a 64-year-old male presenting with follow-up concerns related to post-procedure symptoms after left leg microphlebectomy. Tenderness and lumps were noted on the thigh and calf regions approximately two weeks post-procedure, typical of post-phlebitic inflammatory changes, which were expected to resolve over time. post-operative care involves the use of warm compresses, NSAIDs, and compression stockings, indicating an understanding of his vascular health and necessary ongoing vigilance for similar vein issues in the future. 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 Review of Systems Const All systems reviewed & are unremarkable except as noted in HPI and below Reports no additional complaints ENT Reports Normal hearing present Card Denies chest pain, Denies chest pain at rest, Denies chest pain with activity a nd Denies pedal edema Resp Denies cough GI Denies abdominal pain Musc Denies abnormal gait, Denies muscle cramps and Denies radiating pain into limb Skin/Breast Denies skin ulcer and Denies wounds Neuro Reports Normal hearing present and Denies abnormal gait Psych Reports no additional complaints Physical Exam Const General: cooperative, healthy appearing and comfortable Orientation/consciousness: oriented to person, oriented to place and oriented to time HEENT Head: Yes normal to inspection Neck Neck: Yes normal visual inspection Carotids: no bruits Chest Chest palpation & inspection: normal inspection of the chest Resp Effort & Inspection: normal respiratory effort and able to speak in complete sentences Auscultation: clear to auscultation bilaterally, no crackles, no rales, no rhonchi and no wheezes Cardio Rate: regular rate Rhythm: regular rhythm Heart sounds: S1 normal heart sound present and S2 normal heart sound present Bruits: no carotid bruits Peripheral pulses: Peripheral pulses 2+ throughout GI Inspection: Yes normal to inspection Skin Other: Left leg incision healing well Wounds: no wounds Hair: normal Neuro General: oriented to person, oriented to place and oriented to time Cranial nerves: Yes CN's II-XII intact bilaterally and Yes Normal hearing present Cognition (Neuro): normal cognition Motor exam (neuro): 5/5 motor strength present throughout Extrem Other: venous exam: No significant superficial varicosities or spider telangiectasias, minimal edema General: No clubbing, No cyanosis and No edema Psych Appearance: grossly normal Mental Status: mental status grossly normal Speech and movement: Normal speech and movement present Assessment & Plan Assessment & Plan (1) Varicose veins of left lower extremity with inflammation: Comment: 11/16/2024 - left leg microphlebectomy 12/21/2024 - left leg microphlebectomy Code(s): I83.12 - Varicose veins of left lower extremity with inflammation Category: Medical Plan: The patient has done extremely well with all venous treatments. Patient's may often experience postprocedure phlebitic episodes and I have discussed with the patient use of warm compresses and NSAIDS if tolerated for pain discomfort. In addition, I have discussed continued conservative measures including use of compression, leg elevation, and exercise. The patient was also given an information sheet regarding appropriate use of compression stockings and future purchases. Thank you for allowing us to care for your patient with venous disease. Patient Instructions: - Apply warm compresses to affected areas to reduce tenderness. - Take NSAIDs, such as Advil or Motrin, as needed for pain relief. - Wear compression stockings to improve circulation. - Elevate legs when resting to aid venous return. - Monitor for new vein-related symptoms and consult a specialist if necessary. - Contact the office if symptoms significantly worsen or new issues develop. Coding Level of Care Code Est Pt Level 3 (31138) Diagnoses Varicose veins of left lower extremity with inflammation I83.12
--- OUTSIDE RECORDS SUMMARY | 2025-01-08 09:26 | XMS_ITS ---
Author Organization [facility] Address [address] [place] [address] Care Team Providers Care Hand Driller Name Role Phone Warren Goodman MD Primary Care Provider Jason Taylor Unavailable [phone] Allergies No Known Allergies REASON FOR VISIT Patient presents today for a SCREENING COLON Problems Problem Type SNOMED Code ICD Code Onset Dates Problem Status W/U Status Risk Notes Problem Colon cancer screening (783920480) Colon cancer screening (Z12.11) Active confirmed Problem Pre-procedure evaluation check (354438262) Encounter for other preprocedural examination (Z01.818) Active confirmed Vital Signs Blood pressure systolic 00 mm Hg 09/27/20 24 Blood pressure diastolic 00 mm Hg 024 Height 74 in 09/27/2024 Weight 196 lbs 09/27/2024 BMI 25.16 kg/m2 09/27/2024 Encounters Encounter Location Date Provider Diagnosis [facility] [address] [place] [address] 09/27/2024 Jason Hernández Colon cancer screeni ng [...] Provider Name:Jason Hernández , 01/28/2025 07:30:00 AM, [address] [place] [address], [phone], Progress Notes * RIGOBERTO GARCIA RDOB:1960 (64 yo M)Acc No.[id number]:09/27/2024 Progress Notes Patient:?RIGOBERTO GARCIA Provider:?Jason Hernández MD :1960???Age:64 Y???Sex:Male Ambrose e:09/27/2024 Address:[address] [place], [place] [id number] Pcp:Warren Goodman MD Subjective: * Chief Complaints: [...] Procedure Codes:?3017F COLOR ECTAL CA SCREEN DOC [id number] TOBACCO [id number] BP SCR NOT PRFRM REC REASON NOS * Preventive Medicine:? ??Counseling:?Care goal follow-up plan:?Above Normal BMI Follow-up?Giving encouragement to exercise,?BMI management provided?Yes.? * Follow Up:?prn * * Sign off status: Completed true * Provider:?Jason Hernández MD Date:? 024 Generated for Dez guillaume/Ilia/eTransmitting on:?01/08/2025 09:26 AM EDT History and Physical Notes * HPI (History [...]
--- OUTSIDE RECORDS SUMMARY | 2025-01-08 09:26 | XMS_ITS | Patient Health Record ---
Author Organization [facility] Address [address] [place] [address] Care Team Providers Care Manager Sign Name Role Phone Warren Goodman MD Primary Care Provider Jason Taylor [phone] Allergies No Known Allergies Reason For Referral No Information Problems Problem Type SNOMED Code ICD Code Onset Dates Problem Status W/U Status Risk Notes Problem Colon cancer screening (891086430) Colon cancer screening (Z12.11) Active confirmed Problem Pre-procedure evaluation check (535551802) Encounter for other preprocedural examination (Z01.818) Active confirmed Vital Signs Blood pressure diastolic 00 mm Hg 09/27/2024 Height 74 in 09/27/2024 Blood pressure systolic 00 mm Hg 09/27/2024 Weight 196 lbs 09/27/2024 BMI 25.16 kg/m2 09/27/2024 Encounters Encounter Location Date Provider Diagnosis [facility] [address] [place] [address] 09/27/2024 Jason Hernández Colon cancer screeni Z12.11 [...] Provider Name:Jason Hernández , 01/28/2025 07:30:00 AM, [address] [place] [address] , [place], [place], [phone], Insurance Providers Payer Name Payer Address Payer Phone Subscriber Number Group Number Insured Name Patient Relationship to Insured Coverage Start Date Coverage End Date [employer] [address] [place] [address] [id number] JOSERIGOBERTO MATA Self - patient is the insured Medical (General) History Medical History History ICD Code Denies IN,DM,CVA,Lung disease,renal dise ase Screening Colonoscopy in 2013 with me wi th only a hyperplastic polyp Reports a negative EGD in approx 5 years ago Surgical History Surgery Date(Month/Year) Appendectomy 1984 Multiple knee surgeries 2023 Vein stripping in the past, scheduled again for 11/16/[address] Kirkpatrick
== END 2025-01-08 09:20 | disposition home or self-care (01) ==
LOC: HO.HVS 08:48
PROVIDERS: PCP Internal Medicine; Visit Provider Surgery Vascular Surgery
DX: I83.12 Varicose veins of left lower extremity with inflammation (principal)
CPT/HCPCS: 99213

== ENCOUNTER 2025-01-28 05:43 | Day surgery (SDC) | payer BC, SELFPAY ==
--- OUTSIDE RECORDS SUMMARY | 2024-12-13 07:58 | XMS_ITS | Patient Health Record ---
Author Organization [facility] Address [address] [place] [id number] Care Team Providers Care Net Programmer Name Role Phone Warren Goodman MD Primary Care Provider Jason Taylor Unavailable [phone] ALLERGIES No Known Allergies REASON FOR REFERRAL No Information SOCIAL HISTORY Sex Assigned At : Social History Observation Description Sex Assigned At Unknown PROBLEMS Problem Type ICD Code Onset Dates Problem Status W/U Status Risk SNOMED Code Notes Problem Colon cancer screening (Z12.11) Active confirmed Colon cancer screening (529418282) Problem Encounter for other preprocedural examination (Z01.818) Active confirmed Pre-procedure evaluation check (192665414) VITAL SIGNS Blood pressure diastolic 00 mm Hg 09/27/2024 Height 74 in 09/27/2024 Blood pressure systolic 00 mm Hg 09/27/2024 Weight 196 lbs 09/27/2024 BMI 25.16 kg/m2 09/27/2024 Encounters Encounter Location Date Provider Diagnosis [facility] [address] [place] [phone] 09/27/2024 Jason Hernández Colon cancer screeni ng [...] 01/28/2025 07:30:00 AM, [address] , [place], [place], [phone], Insurance Providers Payer Name Payer Address Payer Phone Subscriber Number Group Number Insured Name Patient Relationship to Insured Coverage Start Date Coverage End Date [facility] [address] [place] [address] [id number] RIGOBERTO GARCIA Self - patient is the insured MEDICAL (GENERAL) HISTORY Medical History History ICD Code Denies MO,DM,CVA,Lung disease,renal dise ase Screening Colonoscopy in 2013 with [facility] th only a hyperplastic polyp Reports a negative EGD in approx 5 years ago Surgical History Surgery Date(Month/Year) Appendectomy 1984 Multiple knee surgeries 2023 Vein stripping in the past, scheduled again for 11/16/[address] Kirkpatrick
--- OUTSIDE RECORDS SUMMARY | 2024-12-13 07:58 | XMS_ITS ---
Author Organization [facility] Address [address] [place] [address] Care Team Providers Care Dress Cap Maker Name Role Phone Warren Goodman MD Primary Care Provider Jason Taylor Unavailable [phone] ALLERGIES No Known Allergies REASON FOR VISIT Patient presents today for a SCREENING COLON PROBLEMS Problem Type ICD Code Onset Dates Problem Status W/U Status Risk SNOMED Code Notes Problem Colon cancer screening (Z12.11) Active confirmed Colon cancer screening (281034511) Problem Encounter for other preprocedural examination (Z01.818) Active confirmed Pre-procedure evaluation check (271259876) VITAL SIGNS Blood pressure systolic 00 mm Hg 09/27/20 24 Blood pressure diastolic 00 mm Hg 024 Height 74 in 09/27/2024 Weight 196 lbs 09/27/2024 BMI 25.16 kg/m2 09/27/2024 Encounters Encounter Location Date Provider Diagnosis [facility] [address] [place] [address] 09/27/2024 Jason Hernández Colon cancer screeni ng [...] Provider Name:Jason Hernández , 01/28/2025 07:30:00 AM, [address] [place] [address], [phone], Progress Notes * Examination Category Sub-Category Detail [...]
[2025-01-24 13:27] VITALS: BMI 25.2
[2025-01-28 06:33] VITALS: BP 129/70; PULSE 64; RESP 18; TEMP 36.4; O2SAT 97; BMI 25.5
[2025-01-28] MEDS: Lactated Ringers 1,000 ML 50 ML IVCONT (07:03)
--- NOTE | 2025-01-28 07:25 | HO.ANESPROP2 ---
HPI - Anesthesia Eval Consult details Narrative: colon PMFSH Active Problems Active Problems: All Active Problems High blood urea nitrogen (BUN) (Acute) Kidney disease (Acute) Varicose veins of left lower extremity with inflammation (Acute) S/P left knee arthroscopy (Acute ~03/28/24) Lateral meniscus tear (Acute) Effusion, left knee (Acute) Primary osteoarthritis of right knee (Acute) Rotator cuff impingement syndrome of right shoulder (Acute) Past Medical History Medical History Hx of varicose veins Rotator cuff impingement syndrome of right shoulder Primary osteoarthritis of right knee GERD (gastroesophageal reflux disease) Medial meniscus tear Family History Family history of problems with anesthesia: No Surgical History Surgical History Hx of appendectomy History of esophagogastroduodenoscopy (EGD) H/O colonoscopy History of repair of ACL History of arthroscopy of right knee History of Problems with Anesthesia: No Social History Social History Alcohol intake: current Alcohol intake frequency: does not drink Patient Tobacco Use Status: Never used Tobacco Have you been hit, kicked, punched, or otherwise hurt by someone within the past year? 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[employer]- Right Handed Meds Allergies Allergy/AdvReac Type Severity Reaction Status Date / Time No Known Allergies Allergy Verified 01/08/25 08:59 Active Medications: Current Medications Lactated Ringer's (Lr) 1,000 mls @ 50 mls/hr IVCONT .Q20H BHUMIKA Last Admin: 01/28/25 07:03 Dose: 50 mls/hr Sodium Biphosphate/Sodium Phosphate (Sodium Phosphate,Spalding-Dibasic 133 Ml Enema) 133 ml WV ONCE PRN PRN Reason: Poor Colonoscopy Prep Results Home Medications ?Medication ?Instructions ?Recorded ?Confirmed ?Last Taken ?Type No Known Home Meds 12/14/24 01/24/25 Unknown History Exam Height,Weight and Vital Signs: Height 6 ft 2 in Weight 90.038 kg Last Vital Signs Temp 97.6 F 01/28/25 06:33 Pulse 64 01/28/25 06:33 Resp 18 01/28/25 06:33 BP 129/70 01/28/25 06:33 Pulse Ox 97 01/28/25 06:33 O2 Del Method Room Air 01/28/25 06:33 Airway Mallampati Class: II TM Dist: >3cm Neck ROM: Full Heart: rrr Lungs: cta Assessment and Plan Assessment Anesthesia Assessment: Anesthesia Plan Discussed and Chart Reviewed Final Anesthetic Review Family History of Problems with Anesthesia: No History of Problems with Anesthesia: No NPO: Yes ASA Class: II Final Preanesthetic Review: No Changes in Pt Med Stat, Meds/Allgs Chart Reviewed, Consent Obtained/Reviewed and Anes Risks/Benef Reviewed Patient Risk: Low Procedure Risk: Low Anesthetic Plan Anesthetic Plan: MAC: Disposition: Standard PACU
[2025-01-28 08:22] VITALS: BP 87/46; PULSE 56; RESP 16; TEMP 36.2; O2SAT 96
--- NOTE | 2025-01-28 08:25 | P.BOP_ITS ---
Brief Operative Note Date of Service: 01/28/25 Pre-op diagnosis: Screening Post-op diagnosis: other (Colon polyps) Procedure: Colonoscopy to the cecum and TI with hot snare polypectomy x 1. Surgeon: Jason Hernández MD Anesthesia: MAC Was an Nutrition Services Aide used for this Procedure?: No Estimated blood loss (mL): 0 Pathology: other (A. Polyp at 20cm) Condition: stable Disposition: PACU
[2025-01-28 08:37] VITALS: BP 110/66; PULSE 57; RESP 18; TEMP 36.2; O2SAT 96
--- NOTE | 2025-01-28 08:41 | OP_ITS ---
DATE OF SERVICE: 01/28/2025 SURGEON: Jason Hernández MD INDICATIONS: The patient presents for evaluation of colorectal cancer screening. Full consent has been obtained from him for this, including risks of bleeding and perforation. PREOPERATIVE DIAGNOSIS: Colorectal cancer screening. POSTOPERATIVE DIAGNOSIS: PROCEDURE PERFORMED: Colonoscopy to the cecum and terminal ileum with hot snare polypectomy. ESTIMATED BLOOD LOSS: COMPLICATIONS: ANESTHESIA: Medication used, monitored anesthesia care. ASSISTANTS: SPECIMENS: POSTOPERATIVE DIAGNOSES: Colorectal cancer screening, colon polyp, diverticulosis, and internal hemorrhoids. DESCRIPTION OF PROCEDURE: The patient was placed in the left lateral decubitus position. The digital rectal exam revealed no abnormalities. The Olympus video pediatric colonoscope was entered into the rectum and advanced easily to the cecum. Once in the cecum, I did identify normal-appearing cecal pouch with appendiceal orifice and a normal-appearing ileocecal valve. The terminal ileum was cannulated and appeared normal. The scope was withdrawn back in the colon. The entire cecum and ileocecal valve appeared normal. The scope was slowly withdrawn assessing all mucosal surfaces carefully. Preparation was excellent. At 20 cm was an approximately 1.2 cm polyp on a short stalk, which was removed by hot snare polypectomy and recovered by withdrawing it on the tip of the scope. The scope was advanced back to the polypectomy site, which appeared clean, without any sign of residual polyp nor bleeding. I did not visualize any other polyps, colitis, nor angiodysplasia. There was a mild amount of sigmoid diverticulosis. In the rectum, scope was retroflexed visualizing internal hemorrhoids, but no other pathology. The rectal mucosa appeared normal. The scope was straightened and withdrawn from the patient. He tolerated the procedure well and was returned to the recovery area in stable condition. IMPRESSION: 1. Colon polyp. 2. Diverticulosis. 3. Internal hemorrhoids. PLAN: The results of the pathology will be checked. Given its appearance, I would recommend a followup colonoscopy in 5 years for further screening. He was advised not to use any aspirin or NSAIDs for 1 week. He will otherwise see me on a p.r.n. basis. MD KARI Adamson/HELDERL / [phone]
== END 2025-01-28 09:05 | disposition home or self-care (01) ==
PROVIDERS: PCP Internal Medicine; Visit Provider Internal Medicine
PROC: 0DJD8ZZ Inspection of Lower Intestinal Tract, Via Natural or Artificial Opening Endoscopic (ICD-10-PCS; CPT 45378; principal; 2025-01-28 07:30)
DX: Z12.11 Encounter for screening for malignant neoplasm of colon (principal); D12.5 Benign neoplasm of sigmoid colon; K57.30 Diverticulosis of large intestine without perforation or abscess without bleeding; K64.8 Other hemorrhoids
CPT/HCPCS: 45385; 88305; J2704

== ENCOUNTER 2025-02-26 08:08 | Outpatient (AMB) | payer BC, SELFPAY ==
--- OUTSIDE RECORDS SUMMARY | 2025-02-26 08:10 | XMS_ITS | Encounter Summary ---
Author Organization [facility] Address [address] [place] [address] Care Team Providers Care Sprayer Hand Name Role Phone Gabriella Hogue MD Primary Care Provider Jason Dickey DO Primary Care Provider Nupur Abdoulaye Kessler MD Primary Care Provider [phone] [facility], Pcp Primary Care Provider Unavailabl e Reason for Visit * Reason Onset Date Comments APPOINTMENT 01/07/2020 Patient contacte d about rescheduling a skin exam but he has issues he would like addressed so we will keep his appointment Encounter Details Date Type Department Care Team Description 01/07/2020 Telephone [address] [place] [id number] Prashant Neumann PA-C APPOINTMENT (Patient contacted about rescheduling a skin exam but he has issues he would like addressed so we will keep his appointment) Social History Tobacco Use Types Packs/Day Years [...] any clubs o r organizations such as orthodoxy groups, unions, fraternal or athletic groups, or [...] on file documented as of this encounter Miscellaneous Notes * Telephone Encounter - Prashant Neumann PA-C - 01/07/2020 12:26 PM EDT This patient was contacted about rescheduling his routine skin exam but informs me that he has several concerns on his neck and chest that are itchy he would like evaluated and would like to keep hisappointment. I told him I will be glad to see him at his scheduled appointment. documented in this encounter Plan of Treatment Not on file documented as of this encounter Visit Diagnoses Not on filedocumented in this encounter Care Teams Sprayer Hand Relationship Specialty Start Date End Date Gabriella Hogue MD PCP - General Internal Medicine 01/24/17 04/23/21 Jason Flower DO PCP - General Internal Medicine 04/24/21 Abdoulaye Moore MD [address] [place] [id number] PCP - General Internal Medicine 08/11/21 01/18[facility]23 [facility] [address] [place] [id number] PCP - General Internal Medicine 01/19/23 documented as of this encounter
--- OUTSIDE RECORDS SUMMARY | 2025-02-26 08:11 | XMS_ITS | Encounter Summary ---
Author Organization [facility] Address [address] [place] [address] Care Team Providers Care Telegraph Repeater Installer Name Role Phone Gabriella Hogue MD Primary Care Provider Jason Dickey DO Primary Care Provider Nupur Abdoulaye Kessler MD Primary Care Provider [phone] [facility], Pcp Primary Care Provider Unavailabl e Encounter Details Date Type Department Care Team Description 08/14/2019 Activities Volunteer Report Medical Records [address] [place] [address] [employer] Social History Tobacco Use Types Packs/Day Years [...] often do you attend chur ch or sabianism services? Never 12/03/2019 Do you belong to any clubs o r organizations such as baptism groups, unions, fraternal or athletic groups, or [...] on filedocumented in this encounter Care Teams Telegraph Repeater Installer Relationship Specialty Start Date End Date Gabriella Hogue MD PCP - General Internal Medicine 01/24/17 04/23/21 Jason Flower DO PCP - General Internal Medicine 04/24/21 Abdoulaye Moore MD [address] [place] [id number] PCP - General Internal Medicine 08/11/21 01/18/[address] [address] PCP - General Internal Medicine 01/19/23 documented as of this encounter
--- OUTSIDE RECORDS SUMMARY | 2025-02-26 08:11 | XMS_ITS ---
Author Organization [facility] Address [address] [place] [address] Care Team Providers Care Hospice Music Therapy Name Role Phone Warren Goodman MD Primary Care Provider Jason Taylor Unavailable [phone] Allergies No Known Allergies REASON FOR VISIT Patient presents today for a SCREENING COLON Problems Problem Type SNOMED Code ICD Code Onset Dates Problem Status W/U Status Risk Notes Problem Colon cancer screening (537142797) Colon cancer screening (Z12.11) Active confirmed Problem Encounter for other preprocedural examination (Z01.818) Active confirmed Vital Signs Blood pressure systolic 00 mm Hg 09/27/20 24 Blood pressure diastolic 00 mm Hg 024 Height 74 in 09/27/2024 Weight 196 lbs 09/27/2024 BMI 25.16 kg/m2 09/27/2024 Encounters Encounter Location Date Provider Diagnosis [facility] [address] [place] [address] 09/27/2024 Jason Hernández Colon cancer screeni ng [...] Next Appt Details Follow Up: prn, Reason: Progress Notes * RIGOBERTO GARCIA RDOB:1960 (64 yo M)Acc No.[id number]:09/27/2024 Progress Notes Patient:?RIGOBERTO GARCIA Provider:?Jason Hernández MD :1960???Age:64 Y???Sex:Male Ambrose e:09/27/2024 Address:[address] [place] [address] Pcp:Warren Goodman MD Subjective: * Chief Complaints: [...] Procedure Codes:?3017F COLOR ECTAL CA SCREEN DOC ANL0642O TOBACCO NON-JSQXH1381 BP SCR NOT PRFRM REC REASON NOS * Preventive Medicine:? ??Counseling:?Care goal follow-up plan:?Above Normal BMI Follow-up?Giving encouragement to exercise,?BMI management provided?Yes.? * Follow Up:?prn * * Sign off status: Completed true * Provider:?Jason Hernández MD Date:? 024 Generated for Dez guillaume/Ilia/Lakesha on:?02/26/2025 08:10 AM EDT History and Physical Notes * [...]
--- OUTSIDE RECORDS SUMMARY | 2025-02-26 08:11 | XMS_ITS | Encounter Summary ---
Author Organization [facility] Address [address] [place] [address] Care Team Providers Care Business Support Professional Name Role Phone Abdoulaye Moore MD Primary Care Provider [phone] [facility] Primary Care Provider Unavailabl e Reason for Visit * Reason Onset Date Comments Advice 01/15/2022 labs ordered by MAURICE Khanna Encounter Details Date Type Department Care Team Description 01/15/2022 Pt. Non Urgent Medical Question Adult Medicine [address] [phone] Abdoulaye Moore MD [address] [place] [id number] Social History Tobacco Use Types Packs/Day Years [...] often do you attend chur ch or yarsanism services? Never 12/03/2019 Do you belong to any clubs o r organizations such as jainism groups, unions, fraternal or athletic groups, or [...] on filedocumented in this encounter Care Teams Business Support Professional Relationship Specialty Start Date End Date Abdoulaye Moore MD [address] [place] [phone] PCP - General Internal Medicine 08/11/21 01/18/23 [facility], [address] [address] PCP - General Internal Medicine 01/19/23 documented as of this encounter
--- OUTSIDE RECORDS SUMMARY | 2025-02-26 08:11 | XMS_ITS | Patient Health Record ---
Author Organization [facility] Address [address] [place] [address] Care Team Providers Care Reconstructive Dentist Name Role Phone Rex ZUNIGA, Warren Primary Care Provider Jason Taylor Unavailable [phone] Allergies No Known Allergies Results Component Value Reference Range Notes Pathology Reviewed date:01/31/2025 08:00:14 AM Interpretation: Performing Lab:[facility], [address] [place] [id number] Notes/Report: Name: Rigoberto Lyn Age/Sex: 64/M : 1960 Unit#: [id number] Attend Dr: Jason Hernández MD Re01/28/25 Status : [facility] Location: [facility] Disch: SPEC : [id number] RECD : 01/28/25 STATUS: SHERRI LIN NUM: [id number] PHILIP: 01/28/[address] [facility] DR: Jason Hernández MD ENTERED: 01/28/25-06 24 SP TYPE: Surgical OTHR DR: Warren Goodman MD ORDERED: Gross Micro L4 Diagnosis Colon, at 20 cm, shabbir yp: Tubular adenoma, completely excised; negative for high-grade dysplasia and carcinoma. Clinical History Pre-Op Dx: Screening diverticulosis, hemorrhoids Post-Op Dx: Polyp Microscopic Description Microscopic sections reviewed. Material Received Polyp at 20 Gross Description Received in formalin labeled polyp at 20 is a 1.0 x 0.6 x 0.5 cm congested and hemorrhagic red-maroon polypoid portion of tissue. The resected base is inked and the specimen is bisected and entirel y submitted in a cassette labeled A. CEDS Copies To: Warren Goodman MD [facility] [address] [place] [address] [address] [place] [address] Jason Hernández MD [facility] [address] [place] [address] [address] [place] [address] Signed (si gnature on file) Estefani Lauro 01/29/25 1536 END OF REPORT Reason For Referral No Information Problems Problem Type SNOMED Code ICD Code Onset Dates Problem Status W/U Status Risk Notes Problem Colon cancer screening (488980750) Colon cancer screening (Z12.11) Active confirmed Problem Encounter for other preprocedural examination (Z01.818) Active confirmed Vital Signs Blood pressure diastolic 00 mm Hg 09/27/2024 Height 74 in 09/27/2024 Blood pressure systolic 00 mm Hg 09/27/2024 Weight 196 lbs 09/27/2024 BMI 25.16 kg/m2 09/27/2024 Encounters Encounter Location Date Provider Diagnosis [facility] Outpatient [address] [place], [place] [phone] 01/28/2025 Jason Hernández Colon cancer screeni ng Z12.11 ; Colon polyps K63.5 ; Diverticulosis of large intestine without perforation or abscess without bleeding K57.30 and Other hemorrhoids K64.8 [facility] [address] [place] [address] 09/27/2024 Jason Hernández Colon cancer screeni ng Z12.11 and Encounter for other preprocedural examination Z01.818 Assessments Encounter Date Diagnosis (ICD Code) Assessment Notes Treatment Notes Treatment Clinical Notes Section Notes 01/28/2025 Colon cancer screening (ICD-10 - Z12.11) 01/28/2025 Colon polyps (ICD-10 - K63.5) 09/27/2024 Colon cancer screening (ICD-10 - Z12.11) [...] to keep you advised of his progress. 01/28/2025 Diverticulosis of large intestine without perforation or abscess without bleeding (ICD-10 - K57.30) 01/28/2025 Other hemorrhoids (ICD-10 - K64.8) Plan Of Treatment Future Test Test Name Order Date COLONOSCOPY 04/09/2014 COLONOSCOPY 09/27/2024 Insurance Providers Payer Name Payer Address Payer Phone Subscriber Number Group Number Insured Name Patient Relationship to Insured Coverage Start Date Coverage End Date [facility] [address] [place] [address] [phone] [id number] RIGOBERTO LYN Self - patient is the insured Medical (General) History Medical History History ICD Code Denies [place],DM,CVA,Lung disease,renal dise ase Screening Colonoscopy in 2013 with me wi th only a hyperplastic polyp Reports a negative EGD in approx 5 years ago Surgical History Surgery Date(Month/Year) Appendectomy 1984 Multiple knee surgeries 2023 Vein stripping in the past, scheduled again for 11/16/[address] Kirkpatrick
--- OUTSIDE RECORDS SUMMARY | 2025-02-26 08:12 | XMS_ITS ---
Author Organization [facility] Address [address] [place] [address] Care Team Providers Care Cloud Operations Engineer Name Role Phone Rex ZUNIGA, Warren Primary Care Provider Jason Taylor Unavailable [phone] REASON FOR VISIT screening Encounters Encounter Location Date Provider Diagnosis [facility] [address] [place], [place] [phone] 01/28/2025 Jason Hernández Colon cancer scree allie Z12.11 ; Colon polyps K63.5 ; Diverticulosis of large intestine without perforation or abscess without bleeding K57.30 and Other hemorrhoids K64.8 Assessments Encounter Date Diagnosis (ICD Code) Assessment Notes Treatment Notes Treatment Clinical Notes Section Notes 01/28/2025 Colon cancer screening (ICD-10 - Z12.11) 01/28/2025 Colon polyps (ICD-10 - K63.5) 01/28/2025 Diverticulosis of large intestine without perforation or abscess without bleeding (ICD-10 - K57.30) 01/28/2025 Other hemorrhoids (ICD-10 - K64.8) Plan Of Treatment No Information Progress Notes * RIGOBERTO GARCIA RDOB:1960 (65 yo M)Acc No.[id number]:01/28/2025 COLON WITH MAC Patient:?JOSERIGOBERTO Peyman Provider:?Jason Hernández MD :1960???Age:64 Y???Sex:Male Ambrose e:01/28/2025 Address:[address] [place], [place] [id number] Pcp:Warren Goodman MD Subjective: * Chief Complaints: * ???1. Screening. * Medical History:? Objective: * Vitals:? Assessment: * Assessment: 1.?Colon cancer screening - Z12.11 (Primary)???2.?Colon polyps - K63.5???3.?Diverticulosis of large intestine without perforation or abscess without bleeding - K57.30???4.?Other hemorrhoids - K64.8??? Plan: * Treatment: * Procedure Codes:?15222 LESIO N REMOVAL COLONOSCOPY, Modifiers: PT * * The named appointment provid er may or may not be the originator of this progress note, and it is not deemed complete until electronically signed by the appointment provider. Sign off status: Pending * Provider:?Jason Hernández MD Date:? 025 Generated for Dez guillaume/Ilia/Lorismitting on:?02/26/2025 08:11 AM EDT
--- OUTSIDE RECORDS SUMMARY | 2025-02-26 08:12 | XMS_ITS | Clinical Summary ---
Author Organization [facility] Address [address] [place] [address] Care Team Providers Care Genetic Physician Name Role Phone Community, Pcp Primary Care Provider Unavailabl e Allergies No known active allergies Medications No known medications Active Problems Problem Noted Date Erectile dysfunction 01/15/2022 Overview: [facility] Osteoarthritis of right knee 01/15/2022 Overview: [facility] History of compression fracture of spine 01/15/2022 Overview: T12-L2 ([facility]) Hyperplastic colon polyp 01/15/2022 Overview: Repeat [...] week 12/03/2019 How often do you attend [facility] or pentecostal services? Never 12/03/2019 Do you belong to any clubs o r organizations such as yarsanism groups, unions, fraternal or athletic groups, or [...] (2022-11 4 season) 2024 09/03/2021, 01/22/2021, 01/21/2021 COLON CANCER SCREENING 07/16/2024 4, 07/16/2014 (External Completion) BMI CHECK/ADVISE 10/17/2024 01/14/2022, , 12/03/2019, Additional history exists INFLUENZA (Season Ended) 2025 020 (Refused), 11/08/2018 (Refused) CHOLESTEROL SCREENING 01/15/2027 01/15/2022 , 12/03/2019, 11/11/2018, Additional history exists PNEUMOCOCCAL VACCINE FOR HIG H RISK PATIENTS (#1) 2027 DTAP/TDAP/TD (2 - Td or Tdap) 11/08/2028 11/08/2018 HEPATITIS C SCREENING Completed 01/24/2017 Care Teams Genetic Physician Relationship Specialty Start Date End Date Community, Pcp PCP - General Internal Medicine 01/19/23
--- OUTSIDE RECORDS SUMMARY | 2025-02-26 08:12 | XMS_ITS | Encounter Summary ---
Author Organization [facility] Address [address] [place] [address] Care Team Providers Care Belt Back Operator Name Role Phone Gabriella Hogue MD Primary Care Provider Jason Dickey DO Primary Care Provider Nupur Abdoulaye Kessler MD Primary Care Provider [phone] [facility], Pcp Primary Care Provider Unavailabl e Encounter Details Date Type Department Care Team Description 12/27/2019 Woodworking Machine Setter Report Medical Records [address] [place] [address] Brian Caldwell, PAHarveyC Social History Tobacco Use [...] often do you attend chur ch or latter day services? Never 12/03/2019 Do you belong to any clubs o r organizations such as restorationism groups, unions, fraternal or athletic groups, or [...] on filedocumented in this encounter Care Teams Belt Back Operator Relationship Specialty Start Date End Date Gabriella Hogue MD PCP - General Internal Medicine 01/24/17 04/23/21 Jason Flower DO PCP - General Internal Medicine 04/24/21 Abdoulaye Moore MD [address] [place] [address] PCP - General Internal Medicine 08/11/21 01/18/[address] [address] PCP - General Internal Medicine 01/19/23 documented as of this encounter
--- NOTE | 2025-02-26 08:18 | MHC.PC.OV ---
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 Zimmerman is a 65-year-old male with history of varicose veins, elevated BUN, osteoarthritis of the right knee, chronic low back pain who presents to the office today for annual physical exam as well as following up on chronic conditions. He is up-to-date on all screenings. Had colonoscopy on 01/28 which showed a tubular adenoma without any high-grade dysplasia with recommended follow-up in 5 years. He did also undergo left lower leg microphlebectomy on 10/29 and 12/21 of this year with Dr. Kirkpatrick. He also underwent right TKA in March of last year wtih Dr. Velasquez. He does state that he still has some pain in the shoulders as well as chronic intermittent low back pain with left-sided radiculopathy. No weakness or paresthesias. He is not overly bothered by this. No bowel/bladder dysfunction. He does have concerning areas on the skin of the upper chest. He reports this is itchy with some questionable areas. He does have family history of melanoma in his mother. He needs to be rescheduled for an appointment. Otherwise he has no concerns. He does not take any medication except for occasional ibuprofen for his low back pain. He does wear hearing aids. No assitive devices. He is employed in [employer] and lives at home. Reviewed labs prior to visit. Creatinine is baseline. BUN minimally elevated at 24. Electrolyte levels normal overall with the exception of mildly elevated chloride of 111. Liver function normal. Cholesterol levels unremarkable except for a mildly elevated LDL of 104. PSA normal at 0.78. Hematology studies unremarkable except for thrombocytopenia of 135 which is chronic. REPLACED BY [facility] Medical History (Updated 02/26/25 @ 09:11 by SANJANA Shepherd) Chronic low back pain with left-sided sciatica Hx of varicose veins Rotator cuff impingement syndrome of right shoulder Primary osteoarthritis of right knee GERD (gastroesophageal reflux disease) Medial meniscus tear Surgical History (Updated 02/21/25 @ 18:05 by Deyanira Rocha) Hx of appendectomy History of esophagogastroduodenoscopy (EGD) H/O colonoscopy (~01/29/25) History of repair of ACL History of arthroscopy of right knee Social History Alcohol intake: current Alcohol intake frequency: does not drink Patient Tobacco Use Status: Never used Tobacco Current occupational status: employed 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 No sore throat, nasal congestion, rhinorrhea, sinus pain, ear pain Cardiovascular: No chest pain, palpitations, or leg edema Respiratory: No shortness of breath, wheezing, cough GI: No abdominal pain, nausea, vomiting, diarrhea, constipation, melena, hematochezia : No dysuria, hematuria, increased urinary frequency, decreased urinary output. No increased nocturia MSK: No myalgia. See hpi Neuro: No headaches, weakness, paresthesias Skin: No rashes or lesions Physical exam (Primary Care) Vital Signs: Last Vital Signs Temp 97.8 F 02/26/25 08:20 Pulse 57 02/26/25 08:20 Resp 16 02/26/25 08:20 BP 130/88 02/26/25 08:20 Pulse Ox 97 02/26/25 08:20 Oxygen Delivery Method Room Air 02/26/25 08:20 BMI result Body Mass Index 24.9 Tobacco/Smoking Status: Tobacco use Status Patient Tobacco Use Status Never used Tobacco 02/26/25 08:24 Const Other: Constitutional - Awake and Alert, No apparent distress Eyes - PERRLA, EOMI Cardiovascular - S1S2, RRR, No edema Respiratory - Normal lung expansion, Normal respiratory effort, No respiratory distress, CTA bilaterally Gastrointestinal - NT / ND; +BS; No rebound or guarding - No CVA tenderness Extremities - no calf tenderness bilaterally, no swelling Musculoskeletal - Normal inspection, normal ROM, negative straight leg raises Skin - Warm/Dry Neurological - Alert & oriented x3, CN II-XII in tact, 5/5 strength BUE and BLE, symmetric patellar reflexes Psychological - Appropriate affect Coding Level of Care Code New Pt Prev Care 40-64y(75053) Diagnoses Annual physical exam Z00.00 Varicose veins of left lower extremity with inflammation I83.12 High blood urea nitrogen (BUN) R79.9 Chronic low back pain with left-sided sciatica M54.42; G89.29 Thrombocytopenia D69.6 Assessment & Plan Assessment & Plan (1) Annual physical exam: Code(s): Z00.00 - Encounter for general adult medical examination without abnormal findings Plan: Health maintenance updated. Reviewed medical, social, family history. Full ROS and exam performed. Overall, patient is in a good general state of health with stable chronic issues mentioned below. Routine labs reviewed including CBC, BMP, liver panel, lipid panel. (2) Varicose veins of left lower extremity with inflammation: Comment: 11/16/2024 - left leg microphlebectomy 12/21/2024 - left leg microphlebectomy Code(s): I83.12 - Varicose veins of left lower extremity with inflammation Category: Medical Plan: Stable. No recurrence. Compression stockings and elevation as needed. (3) High blood urea nitrogen (BUN): Code(s): R79.9 - Abnormal finding of blood chemistry, unspecified Category: Medical Plan: Minimally elevated. No concerning symptoms to be causing elevation and is stable. No evidence of uremia. Nephrology notes reviewed. Reviewed most recent BMP with stable findings. Please follow-up with nephrology as scheduled (4) Chronic low back pain with left-sided sciatica: Code(s): M54.42 - Lumbago with sciatica, left side; G89.29 - Other chronic pain Category: Medical Plan: Stable. No alarm symptoms. Continue ibuprofen as needed for discomfort. Recommend heat or ice as needed and gentle exercises as discussed (5) Thrombocytopenia: Code(s): D69.6 - Thrombocytopenia, unspecified Category: Medical Plan: Mild, stable. will follow. Plan Follow up for annual exam, sooner if needed.
[2025-02-26 08:20] VITALS: BP 130/88; PULSE 57; RESP 16; TEMP 36.6; O2SAT 97; BMI 24.9
== END 2025-02-26 09:02 | disposition home or self-care (01) ==
LOC: HO.HMCHD 08:09
PROVIDERS: PCP Internal Medicine; Visit Provider Physician Assistant
DX: Z00.00 Encounter for general adult medical examination without abnormal findings (principal); I83.12 Varicose veins of left lower extremity with inflammation; R79.9 Abnormal finding of blood chemistry, unspecified; M54.42 Lumbago with sciatica, left side; G89.29 Other chronic pain; D69.6 Thrombocytopenia, unspecified

== ENCOUNTER 2025-03-25 07:13 | Outpatient (REF) | payer BC, SELFPAY ==
--- OUTSIDE RECORDS SUMMARY | 2025-03-25 07:15 | XMS_ITS | Patient Health Record ---
Author Organization 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, [address] [place] [id number] Notes/Report: Name: Rigoberto Lyn Age/Sex: 64/M : 1960 Unit#: [id number] Attend Dr: Jason Hernández MD Re01/28/25 Status : [facility] Location: [facility] Disch: SPEC : [id number] RECD : 01/28/25 STATUS: SHERRI LIN NUM: [id number] PHILIP: 01/28/25 [facility] DR: Jason Hernández MD ENTERED: 01/28/25-06 24 [...] To: Warren Goodman MD [facility] [address] [place] [address] [address] [place] [address] Jason Hernández MD [facility] [address] [place] [address] [address] [place] [address] Signed (si gnature on file) Estefani Lauro 01/29/25 1536 END OF REPORT Reason For Referral No Information Problems Problem Type SNOMED Code ICD Code Onset Dates Problem Status W/U Status Risk Notes Problem Colon cancer screening (839463852) Colon cancer screening (Z12.11) Active confirmed Problem Pre-procedure evaluation check (793518849) Encounter for other preprocedural examination (Z01.818) Active confirmed Vital Signs Blood pressure diastolic 00 mm Hg 09/27/2024 Height 74 in 09/27/2024 Blood pressure systolic 00 mm Hg 09/27/2024 Weight 196 lbs 09/27/2024 BMI 25.16 kg/m2 09/27/2024 Encounters Encounter Location Date Provider Diagnosis [facility] Outpatient [address] [place], [place] [phone] 01/28/2025 Jason Hernández Colon cancer screeni ng Z12.11 ; Colon polyps K63.5 ; Diverticulosis of large intestine without perforation or abscess without bleeding K57.30 and Other hemorrhoids K64.8 [facility] [address] [place] [address] 09/27/2024 Jason Hernández Colon cancer screeni ng [...] Insured Coverage Start Date Coverage End Date [facility] [address] [place] [address] [id number] RIGOBERTO LYN Self - patient is the insured Medical (General) History Medical History History ICD Code Denies [place],DM,CVA,Lung disease,renal dise ase Screening Colonoscopy in 2013 with me wi th only a hyperplastic polyp Reports a negative EGD in approx 5 years ago Surgical History Surgery Date(Month/Year) Appendectomy 1985 Multiple knee surgeries 2023 Vein stripping in the past, scheduled again for 11/16/[address] Kirkpatrick
[2025-03-25 08:37] LABS: Anion Gap 11 (12-20); Blood Urea Nitrogen 20 mg/dL (9-16); Carbon Dioxide 28 mmol/L (22-29); Chloride 108 mmol/L (96-108); Estimated Glomerular Filt Rate > 60; Potassium 3.9 mmol/L (3.3-5.1); Sodium 143 mmol/L (135-145)
[2025-03-25 09:05] LABS: Creatinine, mg/dL 64.61
[2025-03-25 09:06] LABS: Creatinine (CrCl) 0.97 mg/dL (0.5-1.4); Creatinine Clearance 122.5 mL/min (85-125); Creatinine, 24Hr Urine 1.7 G/Day (1.0-2.0); Total Volume 24 Hour Urine 2650 mL
== END 2025-03-25 07:14 | disposition home or self-care (01) ==
LOC: HO.LAB 07:13
PROVIDERS: PCP Internal Medicine; Visit Provider Internal Medicine Nephrology
DX: R79.9 Abnormal finding of blood chemistry, unspecified (principal)
CPT/HCPCS: 36415; 80051; 82565; 82575; 84520

== ENCOUNTER 2025-07-08 15:36 | Outpatient (AMB) | payer BC, SELFPAY ==
--- NOTE | 2025-07-08 15:55 | MHC.PC.OV ---
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 Two weeks ago, he cut himself on a table saw. He was seen at [facility]. The left 2nd and 5th fingers experienced extensive laceration with additional smaller lacerations on the 3rd and 4th fingers. X-ray taken in the ER did not show any acute fracture. He did have 13 sutures placed in the 5th finger and 12 sutures placed in the 2nd finger of the left hand. He was given a dose of Ancef while in the ED and Tdap was updated. He was discharged on 10 day course of Keflex which he completed. He was also seen by Orthopedics 3 days after who recommended amputation but he declined. He does have full sensation in the finger as well as 0 range of motion though limited secondary to swelling. Denies any fevers, chills, purulent drainage. ROS: see hpi EXAM: Constitutional - Awake and Alert, No apparent distress Eyes - PERRL Cardiovascular - S1S2, RRR, No edema Respiratory - Normal lung expansion, Normal respiratory effort, No respiratory distress, CTA bilaterally Extremities - no calf tenderness bilaterally, no swelling Skin - Warm/Dry. L 2nd finger with curvilinear laceration of the distal phalanx with 12 intact sutures. Left 5th finger with curvilinear laceration of the distal pharynx. No significant erythema or warmth. No purulent drainage. There is blood collection along the laceration of the 2nd finger. Following suture removal, no wound dehiscence, Limited ROM due to swelling but full sensation Neurological - Alert & oriented x3 Psychological - Appropriate affect PFSH Medical History (Updated 07/08/25 @ 16:56 by SANJANA Shepherd) Chronic low back pain with left-sided sciatica Hx of varicose veins Rotator cuff impingement syndrome of right shoulder Primary osteoarthritis of right knee GERD (gastroesophageal reflux disease) Medial meniscus tear Surgical History (Updated 02/21/25 @ 18:05 by Deyanira Rocha) Hx of appendectomy History of esophagogastroduodenoscopy (EGD) H/O colonoscopy (~01/29/25) History of repair of ACL History of arthroscopy of right knee Social History Alcohol intake: current Alcohol intake frequency: does not drink Patient Tobacco Use Status: Never used Tobacco Current occupational status: employed 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 Physical exam (Primary Care) Vital Signs: Last Vital Signs Temp 97.3 F 07/08/25 16:01 Pulse 71 07/08/25 16:01 BP 120/80 07/08/25 16:01 Pulse Ox 97 07/08/25 16:01 Oxygen Delivery Method Room Air 07/08/25 16:01 BMI result Body Mass Index 17.7 Tobacco/Smoking Status: Tobacco use Status Patient Tobacco Use Status Never used Tobacco 07/08/25 15:58 Coding Level of Care Code Est Pt Level 4 (05470) Diagnoses Laceration of finger S61.219A Contact with powered saw as cause of accidental injury W31.2XXA Assessment & Plan Assessment & Plan (1) Laceration of finger: Code(s): S61.219A - Laceration without foreign body of unspecified finger without damage to nail, initial encounter Category: Medical Plan: 25 intact suture removed from 2nd and 5th left fingers without any wound dehiscence. Sensation intact and has range of motion. Completed course of Keflex but will prescribe doxycycline for additional MRSA coverage though no evidence of infection at this time. (2) Contact with powered saw as cause of accidental injury: Code(s): W31.2XXA - Contact with powered woodworking and forming machines, initial encounter Category: Medical Plan: See above Plan Follow-up in the office as scheduled. Doxycycline ordered. Tdap up-to-date. Reviewed emergency department note, x-ray of the left fingers Medications: New doxycycline hyclate 100 mg PO BID 14 caps 0RF
[2025-07-08 16:01] VITALS: BP 120/80; PULSE 71; TEMP 36.3; O2SAT 97; BMI 17.7
--- OUTSIDE RECORDS SUMMARY | 2025-07-08 17:54 | XMS_ITS | Clinical Summary ---
Demographics Address [address] [place] [address]
== END 2025-07-08 16:50 | disposition home or self-care (01) ==
LOC: HO.HMCHD 15:36
PROVIDERS: PCP Internal Medicine; Visit Provider Physician Assistant
DX: S61.219A Laceration without foreign body of unspecified finger without damage to nail, initial encounter (principal); W31.2XXA Contact with powered woodworking and forming machines, initial encounter